=== PATIENT | female | born 1940 | race Caucasian/White ===

== ENCOUNTER 2016-10-22 16:45 | Inpatient (IN) | payer MEDICARE, MEDICAID ==
[~2016-10-22] VITALS: Ht 167.6 cm; Wt 82.1 kg
[2016-10-22 16:47] VITALS: BP 139/60; PULSE 72; RESP 20; O2SAT 95
[2016-10-22 17:43] LABS: BASOPHILS % (AUTO) 0.1 % (0-3); EOSINOPHILS % (AUTO) 0 % (0-5); MONOCYTES % (AUTO) 7.7 % (4-12); Mean Corpuscular Hemoglobin 25.1 pg (27.0-35.0); Mean Corpuscular Volume 79.5 fL (81-100); NEUTROPHILS % (AUTO) 87.8 % (40-74); Platelet Count 178 bil/L (150-400)
--- NOTE | 2016-10-22 18:12 | ED.REPORT ---
HPI-General Illness Date of Service Oct 22, 2016 ED Provider: Lindsey Foley MD 75 year old demented female with a history of diabetes presents to the ER via EMS from [facility] due to wound check for coccygeal pressure ulcer. Wound has been present for the past year, but worsened markedly today. Daughter reports that the wound has developed a foul smell since being placed on a wound vac. Patient was taken off of hospice treatment a week ago and showed signs of improvement with honey packing of the wound. This treatment was ceased recently due to development of infection. Staff at [facility] have attempted to get in touch with patient's primary care provider without success, which is the reason for her ER visit today. Daughter is unable to confirm or deny recent fever. Patient is DNAR. History is limited due to patient's underlying dementia. Nursing Notes Stated Complaint: WOUND CHECK POSS SEPSIS Chief Complaint: General Complaint Nursing Notes Reviewed: Yes Allergies: Coded Allergies: buprenorphine (Verified Allergy, Mild, Nausea, 10/22/16) metoclopramide (Verified Allergy, Mild, Restlessness, 10/22/16) Sulfa (Sulfonamide Antibiotics) (Verified Allergy, Unknown, 10/22/16) citalopram (Verified Allergy, Unknown, 10/22/16) doxycycline (Verified Allergy, Unknown, 10/22/16) fenofibrate (Verified Allergy, Unknown, 10/22/16) levofloxacin (Verified Allergy, Unknown, 10/22/16) morphine (Verified Allergy, Unknown, 10/22/16) niacin (Verified Allergy, Unknown, 10/22/16) risperidone (Verified Allergy, Unknown, 10/22/16) rosiglitazone (Verified Allergy, Unknown, 10/22/16) sulfamethoxazole (Verified Allergy, Unknown, 10/22/16) Scheduled Aspirin (Aspirin) 81 Mg Tablet 81 MG PO QAM Mirtazapine (Mirtazapine) 15 Mg Tablet 7.5 MG PO HS Quetiapine Fumarate (Quetiapine Fumarate) 25 Mg Tablet 25 MG PO QAM Scheduled PRN Acetaminophen (Acetaminophen) 325 Mg Tablet 650 MG PO Q4H PRN PRN For Fever Lorazepam (Lorazepam) 0.5 Mg Tablet 0.5-2 MG PO Q2H PRN PRN For Anxiety General Time Seen by MD: 18:11 Chief Complaint Other (Pressure Ulcer) Hx Obtained From: Daughter Arrived By: Ambulance Sudden in Onset?: No Onset Occurred: More than a week ago... (1 year) Context Related History: Reports Diabetes mellitus Recent Healthcare: Recent doctor visit Similar Sx Previous: Yes Past Medical History Past Medical History Parkinson's Disease Reports: Diabetes mellitus (type 2) Smoking History Former Smoker Social History Other Social History: Good social support Review of Systems Unable to Obtain ROS Mental status Physical Exam Vital Signs Vital Signs Date Time Temp Pulse Resp B/P Pulse Ox O2 Delivery O2 Flow Rate FiO2 10/22/16 16:47 36.6 72 20 139/60 95 Nasal Cannula 2 Initial VS: Reviewed Head / Eyes: Atraumatic, Normocephalic Neck: Supple, Non-tender, Full range of motion Abdomen / GI: Soft, Non-tender, No guarding, No rebound, No distention General/Constitutional: Well developed, Well nourished Alertness: Positive: Somnolent Appearance / Presentation: Positive: Obese Respiratory / Chest: Breath sounds NL, No respiratory distress, No rales, No rhonchi, No wheezing Cardiovascular: Heart rate NL, Regular rhythm, Heart sounds NL, Cap refill not delayed, Peripheral circulation NL Lower Extremity / Pelvis / MS: Neurologic intact, Vascular intact Left Thigh: Positive: Erythema present Left Leg / Calf: Positive: Erythema present 8cm diameter coccygeal decubitus ulcer with wound vac in place. Well-defined erythema down left leg. No crepitus. Sparing of the erythema on the anterior thigh to the groin. Interpretation & Diagnostics PROCEDURE: CT LOWER EXTREMITY LEFT WITH CONTRAST IMPRESSION: 1. Sacral decubitus ulcer redemonstrated extending to the inferior aspect of the sacrum and coccyx with associated osteomyelitis centered at the sacrococcygeal junction. No discrete abscess collection identified. 2. No definite ulcer demonstrated elsewhere in the left lower extremity. Subcutaneous edema demonstrated distally posterior to the calcaneus without a definite discrete ulcer. 3. Marked stool distention of the rectum suggestive of fecal impaction. Dictated by: Geovanni Lynne M.D. on 10/22/2016 at 20:02 Approved by: Geovanni Lynne M.D. on 10/22/2016 at 20:10 Lab Results Interpretation Result Diagram: 10/22/16 1721 10/22/16 1721 Test 10/22/16 17:21 White Blood Count 15.2th/mm3 (3.8-10.1) Red Blood Count 3.46mil/mm3 (3.90-5.20) Hemoglobin 8.7g/dL (12.0-15.6) Hematocrit 27.5% (35.0-46.0) Mean Corpuscular Volume 79.5fL (81-100) Mean Corpuscular Hemoglobin 25.1pg (27.0-35.0) Mean Corpuscular Hemoglobin Concent 31.6% (32.0-37.0) Red Cell Distribution Width 15.8% (12.3-15.4) Platelet Count 178bil/L (150-400) Neutrophils (%) (Auto) 87.8% (40-74) Lymphocytes (%) (Auto) 4.1% (14-46) Monocytes (%) (Auto) 7.7% (4-12) Eosinophils (%) (Auto) 0% (0-5) Basophils (%) (Auto) 0.1% (0-3) Prothrombin Time 12.2sec (8.1-12.5) Prothromb Time International Ratio 1.14ratio Activated Partial Thromboplast Time 30.1sec (22.8-33.0) Sodium Level 134mEq/L (134-144) Potassium Level 3.2mEq/L (3.5-5.2) Chloride Level 95mEq/L (97-108) Carbon Dioxide Level 22mmol/L (18-29) Blood Urea Nitrogen 35mg/dL (8-27) Creatinine 0.78mg/dL (0.57-1.00) Estimat Glomerular Filtration Rate 103mL/min (>59) Glucose Level 163mg/dL (60-99) Lactic Acid Level 0.7mmol/L (0.4-2.0) Calcium Level 9.4mg/dL (8.5-10.1) Phosphorus Level 3.6mg/dL (2.5-4.9) Magnesium Level 1.8mg/dL (1.6-2.6) Total Bilirubin 0.4mg/dL (0.0-1.2) Aspartate Amino Transf (AST/SGOT) 10U/L (0-50) Alanine Aminotransferase (ALT/SGPT) 5U/L (0-32) Alkaline Phosphatase 220U/L (25-165) Troponin T 0.057ug/L (0.0-0.011) Total Protein 6.9g/dL (6.4-8.4) Albumin 3.0g/dL (3.4-5.0) Procalcitonin 4.72ng/mL (0.00-0.08) ECG Interpretation ECG Interpretation: Sinus rhythm, rate [address] elevations T wave inversion in aVR Q wave in lead 3 Unchanged Time: 20:00 Interpreted by: ED physician Re-Eval/Medical Decision Med Decision/Clinical Course 75-year-old female with extensive past medical history including sacral decubitus ulcer who was recently taken off of hospice for decubitus ulcer brought in by her daughters for worsening smell. Differential diagnosis includes but is not limited to sepsis versus worsening sacral decub versus osteomyelitis versus cellulitis. Labs are remarkable for leukocytosis and anemia. Her stool is brown, and I do not feel she requires a Hemoccult exam at this time. CMP shows mild hypokalemia. Her lactic acid is normal. She has been given vancomycin, Zosyn, Levaquin for broad-spectrum antibiotics. She was also given fluids. Her troponin came back elevated, which I think is likely secondary to septic process, and not acute TN. Her EKG was unremarkable. Her daughters are wondering if she should go back on hospice. Patient has been admitted to the hospitalist, who is aware of possible transfer to hospice. Source of Hx: Old records Time of Eval: 18:43 Re-Evaluation/Progress Note: Discussed physical examination and need for admission. Daughter is amenable to the plan. All other questions addressed. Time of Eval: 20:50 Re-Evaluation/Progress Note: Discussed CT results and updated family on plan of care. Consultation : Referral / Consult Name: Danis Lynn MD Consulted With: Hospitalist Call Returned at: 20:46 Claims Adjuster Supervisor: Agrees with eval, Agrees with plan, Accepts admit Counseled Regarding: Diagnosis, Lab results, Need for admission Discharge & Departure Primary Impression: Sepsis Additional Impression: Decubitus ulcer of coccygeal region Disposition: ADMITTED TO HOSPITAL (3 ) Discharge Condition All VS Reviewed: Yes Condition: Stable Referrals: Neto Horton MD (PCP) Scribe Attestation Portions of this note were transcribed by Yolis Wilson. IDr. Foley, personally performed the history, physical exam and medical decision-making; I reviewed and confirmed the accuracy of the information in the transcribed note. Signed by: Marialuisa Arevalo. 10/22/2016 - 20:50 copies to: Neto Horton MD, Rebecca A MD Oct 22, 2016 18:12 YOLIS WILSON Oct 22, 2016 18:43
[2016-10-22] MEDS ORDERED: 0.9% Sodium Chloride 1,000 ML IV ONE ×2 (18:44→19:55)
[2016-10-22 18:45] VITALS: BP 124/52; PULSE 65; RESP 19; O2SAT 94
[2016-10-22] MEDS ORDERED: Piperacillin-Tazo 3.375 Gm Inj 3.375 GM in Dextrose 5% Minibag Plus 50 ML IV ONE (18:45)
[2016-10-22] MEDS ORDERED: Vancomycin Dose per Pharmacist XX ONE (18:45)
[2016-10-22 18:59] LABS: INR 1.14 ratio
[2016-10-22 19:06] LABS: Magnesium 1.8 mg/dL (1.6-2.6); Phosphorus 3.6 mg/dL (2.5-4.9)
[2016-10-22 19:27] LABS: TROPONIN T 0.057 ug/L (0.0-0.011)
[2016-10-22] MEDS ORDERED: Vancomycin Inj 1,750 MG in 0.9% Sodium Chloride 500 ML IV ONE (19:55)
[2016-10-22] MEDS ORDERED: Vancomycin Inj 1,500 MG in 0.9% Sodium Chloride 500 ML IV ONE (20:05)
--- NOTE | 2016-10-22 20:11 | DRSVH ---
PROCEDURE: CT LOWER EXTREMITY LEFT WITH CONTRAST INDICATIONS: sacral decub extending down whole leg TECHNIQUE: After the administration of intravenous contrast, 3 mm axial sections acquired of the left lower extr emity, with coronal and sagittal reformats. For radiation dose reduction, the following was used: a utomated exposure control, adjustment of mA and/or kV according to patient size. COMPARISON: [facility], MR, PELVIS W&WO CONTRAST, 08/15/2015, 11:29. FINDINGS: Image quality: History artifact associated with patient's left knee prosthesis. Bones: There are bony erosive changes at the sacrococcygeal junction consistent with osteomyelitis as demonstrated on the prior MRI. No definite new areas of osteomyelitis demonstrated elsewhere. No d efinite acute fractures or dislocation. There is a left total knee prosthesis with associated streak artifact. No hip or knee joint effusions. Soft tissues: There is a midline decubitus ulcer along the inferior aspect of the sacrum and coccyx m easuring up to approximately 5.8 cm in transverse dimension by approximately 6.7 cm in craniocaudal d imension and approximately 1.9 cm in depth. The ulcer extends to the sacrum and coccyx. No discrete fluid collections to suggest abscess. There is subcutaneous edema along the posterior aspect of the calcaneus without a discrete decubitus ulcer. There is fatty atrophy of the visualized musculature. The visualized pelvis demonstrates a Mclain catheter within a nondistended urinary bladder. There is marked stool distention of the rectum again noted. IMPRESSION: 1. Sacral decubitus ulcer redemonstrated extending to the inferior aspect of the sacrum and coccyx w ith associated osteomyelitis centered at the sacrococcygeal junction. No discrete abscess collection identified. 2. No definite ulcer demonstrated elsewhere in the left lower extremity. Subcutaneous edema demonst rated distally posterior to the calcaneus without a definite discrete ulcer. 3. Marked stool distention of the rectum suggestive of fecal impaction. Dictated by: Geovanni Lynne M.D. on 10/22/2016 at 20:02 Approved by: Geovanni Lynne M.D. on 10/22/2016 at 20:10
[2016-10-22 20:45] VITALS: BP 130/46; PULSE 67; RESP 16; O2SAT 100
[2016-10-22] MEDS ORDERED: Ondansetron 2 mg/mL 2 mL Inj IVPUSH PRN ×2 (20:45→22:30)
[2016-10-22] MEDS ORDERED: Alum-Mag Hydrox-Simeth 30 mL Suspension PO PRN ×2 (20:45→22:30)
[2016-10-22] MEDS ORDERED: LORA0.5T PO (21:10)
[2016-10-22] MEDS ORDERED: ASPI-973 PO (21:10)
[2016-10-22] MEDS ORDERED: QUET25TA73 PO (21:10)
[2016-10-22] MEDS ORDERED: ACET325T51 PO (21:10)
[2016-10-22] MEDS ORDERED: MIRT15TA6 PO (21:10)
[2016-10-22] MEDS ORDERED: LORA10CA PO (21:22)
[2016-10-22] MEDS ORDERED: NYST15PO5 TP (21:22)
[2016-10-22] MEDS ORDERED: TRAZ-115 PO (21:22)
[2016-10-22] MEDS ORDERED: DOCU-41 PO (21:22)
[2016-10-22] MEDS ORDERED: CARB1TAB17 PO (21:22)
[2016-10-22] MEDS ORDERED: HYDR1LIQ4 PO (21:22)
[2016-10-22] MEDS ORDERED: HYOS0.1216 PO (21:22)
[2016-10-22] MEDS ORDERED: METH5TAB3 PO (21:22)
[2016-10-22] MEDS ORDERED: BISA10SU61 RC (21:22)
[2016-10-22] MEDS ORDERED: LATA2.5D6 BOTH_EYES (21:22)
[2016-10-22] MEDS ORDERED: LEVO175T5 PO (21:22)
[2016-10-22] MEDS ORDERED: METF1000 PO (21:22)
--- NOTE | 2016-10-22 21:22 | NUR ---
Admit nurse note Admission assessment completed in the ER based on family report. PT. opens her eyes and c/o burning pain in pressure ulcer and then falls asleep again. Pt. is currently on sand bed. Per family pt. 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 PT. lives at [facility]. POLSt and DPMARCIA originals are on the chart. Savannah Perez is named as DPOA. Per family pt. currently has a UTI (she has an indwelling catheter and has frequent UTI's.) Per family pt is bed and w/c bound and uses a martinez lift to transfer. She requires some assistance with eating but is usually able to independently eat a sandwich. Per family pt has sleep apnea but has not had treatment for it. Report given to Loida Dozier who states she will verify allergies, follow up regarding advance directive copies and sleep apnea protocol.
[2016-10-22] MEDS ORDERED: OMEP20CA11 PO (21:23)
[2016-10-22] MEDS ORDERED: PRAM1TAB3 PO (21:23)
[2016-10-22] MEDS ORDERED: CARB-132 PO (21:26)
--- NOTE | 2016-10-22 21:26 | PCM.HPMED ---
Subjective Date of Service Oct 22, 2016 Primary Provider: Admitting Physician: Danis Lynn MD Primary Care Physician: Neto Horton MD Attending Physician: Danis Lynn MD Admit Status: From the Emergency Department Chief Complaint: decubitus ulcer with cellulitis, confusion, prior hospice History of Present Illness: Is a pleasant 75 y/o bed ridden F with hx of dementia and worsening delirium over the past year, hx of DM2, and 2 year hx sacral decubitus ulcer, who presented to the ED [facility] patient resides due to left lower extremity redness, and swelling over the past 48 hours. Patient describes burning pain on the buttock area rated 8 out of 10. Of note patient had wound VAC therapy for the last 3 weeks. Patient has been followed in wound care clinic once a week, otherwise was having her shoulder ulcer evaluated at [facility]. The wound seemed to be worsening over the past 48 hours and an evolving cellulitis of the left lower extremity prompted patient's visit to the ED. Patient's daughter Ebonie was present in the room at time of interview and reported that the wound had developed a foul smell since being placed on a wound vac. Of note patient was recently taken off of hospice treatment a week ago and showed signs of improvement with honey packing of the wound. This treatment was ceased recently due to development of infection. Prior to transfer to [facility] patient was residing at [facility] for. 3 months for possible surgical flap repair of the deep decubitus ulcer however was liter determined not to be a candidate for surgery given level of debility. Daughter is unable to confirm or deny associated fever. Denies nausea, vomiting , abdominal pain, dysuria, hematuria, cough, shortness of breath. Patient is DNR /DNI. History is limited due to patient's underlying dementia. CT left lower extremity showed: 1. Sacral decubitus ulcer redemonstrated extending to the inferior aspect of the sacrum and coccyx with associated osteomyelitis centered at the sacrococcygeal junction. No discrete abscess collection identified. 2. No definite ulcer demonstrated elsewhere in the left lower extremity. Subcutaneous edema demonstrated distally posterior to the calcaneus without a definite discrete ulcer. 3. Marked stool distention of the rectum suggestive of fecal impaction. Vital signs ED: Temperature 36.6, pulse 72, respiratory rate 20, blood pressure 139/60, 96, pulse ox 95% on 2 L nasal cannula. Patient received 1 L normal saline bolus in the ED. Patient was started on vancomycin 1500 mg once in the ED. Patient was started on Zosyn 3.375 g once in the ED. Hemogram significant for: PVCs 15.2, percent neutrophils 87.8, H/H8.7, 27.5, platelets 178, differential, MCV 79.5, MCH 25.1, MCH C 31.6, RDW 15.8. Chemistry panel: Sodium 134, potassium 3.2, chloride 95, carbon dioxide 22, BUN 35, creatinine 0.78, glucose 163, lactic acid 0.7, magnesium 1.8, alkaline phosphatase 220, troponin 0.057, pro calcitonin 4.72, albumin 3.0 PT INR, 12.2/1.14, APTT 30.1 Blood cultures 2 ordered and pending Review of Systems: A comprehensive review of systems was conducted and was negative except as mentioned in history of present illness. Allergies Coded Allergies: buprenorphine (Verified Allergy, Mild, Nausea, 10/22/16) metoclopramide (Verified Allergy, Mild, Restlessness, 10/22/16) Sulfa (Sulfonamide Antibiotics) (Verified Allergy, Unknown, 10/22/16) citalopram (Verified Allergy, Unknown, 10/22/16) doxycycline (Verified Allergy, Unknown, 10/22/16) fenofibrate (Verified Allergy, Unknown, 10/22/16) levofloxacin (Verified Allergy, Unknown, 10/22/16) morphine (Verified Allergy, Unknown, 10/22/16) niacin (Verified Allergy, Unknown, 10/22/16) risperidone (Verified Allergy, Unknown, 10/22/16) rosiglitazone (Verified Allergy, Unknown, 10/22/16) sulfamethoxazole (Verified Allergy, Unknown, 10/22/16) Home Medications Note the following medications have not been verified or reconciled. Acetaminophen 325 mg tablet takes 650 mg by mouth every 4 hours for pain Aspirin 81 mg tablet by mouth every morning Bisacodyl 10 mg suppository rectal 3 times per week when necessary Carbidopa levodopa 25- 250 mg 1 tablet by mouth 4 times a day Carbidopa/levodopa/Enta 50-200-200 mg 1 tablet by mouth at bedtime Docusate sodium 100 mg capsule takes 2 by mouth every morning Hydromorphone 1 mg per 1 mL liquid patient takes 1-4 mg by mouth every hour for pain when necessary Hyoscyamine 0.125 mg tablet, takes 0.25 mg by mouth every 4 hours when necessary Latanoprost 2.5 ml drops drop both eyes before bed Thyroxine 175 g by mouth every morning Loratadine 10 mg capsule every morning Lorazepam 0.5 mg tablet takes 0.5-2 mg every 2 hours when necessary for anxiety Metformin 1000 mg tablet by mouth daily with meals Methadone 5 mg tablet 2.5 mg by mouth twice a day Metronidazole 375 mg capsule, sprinkle 1000 mg on to wound twice daily Mirtazapine 15 hemogram tablet 7.5 mg by mouth every night Nystatin 15 g powder, 1 application twice a day to abdominal folds for rash Omeprazole 20 mg capsule every morning Mirapex 1 mg. By mouth twice a day Quetiapine 25 mg tablet every morning for schizoaffective disorder Trazodone 50 mg tablet by mouth at bedtime PMH Parkinson's Disease Reports: Diabetes mellitus (type 2) Hyperlipidemia prior history of hypertension Patient/anxiety Dementia Worsening delirium over the past year Surgical History Ovarian cancer 30 years ago Left knee surgery 20 years ago back surgeries 2 lumbar area with surgical sridhar placement 10 years ago Hernia repair of the abdomen Bowel obstruction Cholecystectomy Family History Brother with coronary disease Sister with Parkinson's Social History Hx Tobacco Use: No Smoking Status: Former Smoker Exam Vital Signs Vital Sign - Last Date Time Temp Pulse Resp B/P Pulse Ox O2 Delivery O2 Flow Rate FiO2 10/22/16 16:47 36.6 72 20 139/60 95 Nasal Cannula 2 Exam General: Patient is somewhat obtunded but able to respond to simple questioning and follows simple commands, patient lying in bed with mild slightly gaping, able to open eyes to command, able to follow instructions, though minimally HEENT: NC/AT, eyes, PERRLA, neck soft supple, no adenopathy, no JVD, no masses, no thyromegaly, mucous membranes pink and dry, appears dehydrated, no erythema, no exudates Lungs: CTAB all tierney, no wheezes, no rhonchi, no crackles, no adventitious lung sounds, no use of accessory muscles of respiration, adequate air movement, though poor respiratory effort. Heart: Regular rate and rhythm, grade 1 systolic murmur Abdomen: Soft, nontender, nondistended, bowel sounds active, no rebound, no guarding, abdomen is obese Genitourinary: No CVA tenderness, no suprapubic tenderness, Mclain catheter draining lightly colored urine, Extremities: Left lower extremity appears somewhat diffusely erythematous, with mild swelling however did not detect increased warmth, erythema was small petechial rash that appears to be coalescing. Muscle strength, 5 out of 5 upper extremity and symmetric laterally, onychomycosis of the lower trimming nails, toe webs appear healthy, pulses equal and symmetric upper/lower extremity including radial and dorsalis pedis. Neurologic: neurologically intact, able to respond to certain commands although exam is difficult given patient's level of debility Skin: Severe 15 x 15 cm circumferential decubitus ulcer full-thickness, with 4 cm of undermining circumferentially. One was covered by foam pad that was stained with blood, skin of left lower extremity with diffuse erythema Psychiatric: somewhat obtunded Lab and Diagnostics Result Diagram: 10/22/16 1721 10/22/16 1721 X-Rays, CTs and MRIs Date of Service: 10/22/16 190 PROCEDURE: CT LOWER EXTREMITY LEFT WITH CONTRAST INDICATIONS: sacral decub extending down whole leg TECHNIQUE: After the administration of intravenous contrast, 3 mm axial sections acquired of the left lower extremity, with coronal and sagittal reformats. For radiation dose reduction, the following was used: automated exposure control, adjustment of mA and/or kV according to patient size. COMPARISON: [facility], MR, PELVIS W&WO CONTRAST, 08/15/2015, 11:29. FINDINGS: Image quality: History artifact associated with patient's left knee prosthesis. Bones: There are bony erosive changes at the sacrococcygeal junction consistent with osteomyelitis as demonstrated on the prior MRI. No definite new areas of osteomyelitis demonstrated elsewhere. No definite acute fractures or dislocation. There is a left total knee prosthesis with associated streak artifact. No hip or knee joint effusions. Soft tissues: There is a midline decubitus ulcer along the inferior aspect of the sacrum and coccyx measuring up to approximately 5.8 cm in transverse dimension by approximately 6.7 cm in craniocaudal dimension and approximately 1.9 cm in depth. The ulcer extends to the sacrum and coccyx. No discrete fluid collections to suggest abscess. There is subcutaneous edema along the posterior aspect of the calcaneus without a discrete decubitus ulcer. There is fatty atrophy of the visualized musculature. The visualized pelvis demonstrates a Mclain catheter within a nondistended urinary bladder. There is marked stool distention of the rectum again noted. IMPRESSION: 1. Sacral decubitus ulcer redemonstrated extending to the inferior aspect of the sacrum and coccyx with associated osteomyelitis centered at the sacrococcygeal junction. No discrete abscess collection identified. 2. No definite ulcer demonstrated elsewhere in the left lower extremity. Subcutaneous edema demonstrated distally posterior to the calcaneus without a definite discrete ulcer. 3. Marked stool distention of the rectum suggestive of fecal impaction. Dictated by: Geovanni Lynne M.D. on 10/22/2016 at 20:02 Approved by: Geovanni Lynne M.D. on 10/22/2016 at 20:10 Assessment & Plan This is a pleasant although demented 68-year-old female with past medical history of type II diabetes and two-year history of decubitus ulcer who presented to the ED with 2 days of left lower cellulitis secondary to decubitus ulcer. Patient was found to have osteomyelitis on CT and was admitted to the hospital for care. Of note patient just was taken off of hospice. Patient's daughter and patient will need to decide on further hospice care or not. # Cellulitis of left lower extremity secondary to a chronic sacral decubitus ulcer, present on admission, active - Patient was started on vancomycin 1500 mg once in the ED. we will continue - Patient was started on Zosyn 3.375 g once in the ED. we will continue - IV maintenance fluids normal saline at 100 mL an hour # Chronic sacral decubitus ulcer, present on admission, active - Patient failed honey packing secondary to #1 cellulitis - Two-year history of decubitus ulcer, status post failed wound VAC therapy over past 3 weeks. - Patient is seen once a week in the wound clinic - Temporary wound care instructions given for overnight - Wound care evaluation in the morning # Osteomyelitis, present remission, active - As seen on CT - Antibiotics as above - Consider infectious disease consult # Leukocytosis, present remission, active - Vital signs ED: Temperature 36.6, pulse 72, respiratory rate 20, blood pressure 139/60, 96, pulse ox 95% on 2 L nasal cannula. - White blood cell count > 15.2 percent neutrophils 87.8 - lactic acid 0.7, - Procalcitonin 4.72 - Antibiotics as stated above - Blood cultures 2 ordered and pending # Elevated troponin, present remission, active - Likely secondary to demand - troponin 0.057 - We will trend troponin # Dehydration, present on admission, active - Patient is at risk for aspiration - Patient received 1 L normal saline bolus in the ED. - Continue IV maintenance normal saline as above - Speech therapy, occupational therapy, physical therapy ordered pending for today - Nursing to do swallow evaluation - Current diet is liquid thick # Hypoalbuminemia, present on admission, - Secondary to poor nutrition, by mouth intake of protein and secondary to #1 decubitus ulcer # Hypokalemia, recent on admission, active - potassium 3.2, will replete potassium #Hyperglycemia present in a known type II diabetic, present on admission, active - glucose 163, - Low-dose correctional scale insulin - We will continue to monitor. # Hypochromic microcytic anemia, chronicity unknown, present on admission, active - H/H8.7, 27.5, platelets 178, differential, MCV 79.5, MCH 25.1, MCH C 31.6, RDW 15.8. - We will obtain iron studies - Ferritin # Sacral decubitus ulcer with associated osteomyelitis of the sacrococcyx, present on admission, active - As seen on CT left lower extremity: 1. Sacral decubitus ulcer redemonstrated extending to the inferior aspect of the sacrum and coccyx with associated osteomyelitis centered at the sacrococcygeal junction. No abscess. # Fecal impaction, present on admission, active As seen on CT left lower extremity: Marked stool distention of the rectum suggestive of fecal impaction. Chronic problems Parkinson's Disease - Continue outpatient medication carbidopa levodopa Reports: Diabetes mellitus (type 2) - Patient was on metformin 1000 mg daily however med rec is incomplete and needs to be reconciled. Hyperlipidemia prior history of hypertension - med rec is incomplete and needs to be reconciled. Patient/anxiety - med rec is incomplete and needs to be reconciled. Dementia - Possibly secondary to sinus disease Worsening delirium over the past year - I could secondary to bedridden, multiple comorbid medical conditions, polypharmacy Disposition: Admitted to in patient service with expected length of stay greater than 2 days, secondary to severity of presenting symptoms, treatment plan, complexity of clinical work up, and risk of adverse events. CODE STATUS: DNR/DNI PCP: DVT PE prophylaxis: Enoxaparin Contact: Daughter Ebonie [phone] Daughter Savannah [phone] Pain Evaluation: Pain not Controlled VTE Prophylaxis: Sub-Q Enoxaparin Resuscitation Status: DNR/DNI:Do Not Resuscitate/Intubate Attending Statement The patient was seen and examined together with Dr. Mcgowan on 10/22/2016and I agree with the history, exam and plan as outlined in the note above. Evin Mcgowan DO Oct 22, 2016 21:26 Danis Lynn MD Oct 23, 2016 03:56
[2016-10-22] MEDS ORDERED: METR375C4 TOPICAL (21:30)
[2016-10-22 21:52] VITALS: BP 142/69; PULSE 67; RESP 18; O2SAT 98
[2016-10-22] MEDS ORDERED: 0.9% Sodium Chloride 1,000 ML IV SCH (22:29)
[2016-10-22] MEDS ORDERED: Polyethylene Glycol (PEG) 17 Gm Powder PO PRN (22:30)
[2016-10-23] MEDS: oxyCODONE-Acetamin 5-325 mg Tablet PO PRN ×2 (00:03→04:10)
[2016-10-23] MEDS: HYDROmorphone 0.5 mg/0.5 mL iSecure Syringe IVPUSH PRN ×3 (01:55→13:58)
[2016-10-23] MEDS ORDERED: Piperacillin-Tazo 3.375 Gm Inj 3.375 GM in Dextrose 5% Minibag Plus 50 ML IV SCH (02:00)
[2016-10-23 04:37] LABS: APPEARANCE,URINE SLIGHTLY CLOUDY (CLEAR,HAZY); COLOR,URINE YELLOW (YELLOW); OCCULT BLOOD,URINE SMALL (NEGATIVE); PH,URINE >9 (5.0-8.0); UROBILINOGEN,URINE NORMAL (NORMAL)
--- NOTE | 2016-10-23 04:52 | NUR ---
Pain / ulcer Pt arrived from ED on sand bed, states pain is very bad. Large open ulcer on sacrum packed with wet to dry dressing per Md, wound care to assess in am; wound vac was removed in ED. Required IV pain med for dressing change. Mclain catheter in place from facility, ua sent. Very sleepy, able to wake and participate in RN safe swallow eval, family states that baseline is normal diet; speech to follow. Left leg with large reddened area, outlined with ink for reference. Placed on contact precautions for history of MRSA. Oriented to call light, hospital routines, plan of care; hourly rounding ongoing.
[2016-10-23 05:20] LABS: BASOPHILS % (AUTO) 0.1 % (0-3); EOSINOPHILS % (AUTO) 0.2 % (0-5); MONOCYTES % (AUTO) 9.1 % (4-12); Mean Corpuscular Hemoglobin 24.5 pg (27.0-35.0); Mean Corpuscular Volume 80.5 fL (81-100); NEUTROPHILS % (AUTO) 84.6 % (40-74); Platelet Count 154 bil/L (150-400)
[2016-10-23] MEDS ORDERED: KCl 40 mEq/D5W 500 mL 40 MEQ in IV Premix 1 EACH IV ONE ×2 (05:50→06:25)
[2016-10-23 05:54] VITALS: BP 152/84; PULSE 61; RESP 16; O2SAT 99
--- NOTE | 2016-10-23 06:20 | PCM.CONPHA ---
Subjective Date of Service: Oct 23, 2016 Requesting Provider: Evin Mcgowan DO decubitus ulcer with cellulitis, confusion, prior hospice Reason for Pharmacy Consult: Vancomycin Dosing Objective Vital Signs Date Time Temp Pulse Resp B/P Pulse Ox O2 Delivery O2 Flow Rate FiO2 10/23/16 05:54 36.9 61 16 152/84 99 Nasal Cannula 10/22/16 21:52 36.7 67 18 142/69 98 Room Air 10/22/16 21:35 36.6 67 16 130/46 100 Room Air 10/22/16 20:45 67 16 130/46 100 Room Air 10/22/16 18:45 65 19 124/52 94 Room Air 10/22/16 16:47 36.6 72 20 139/60 95 Nasal Cannula 2 Intake and Output 10/21/16 10/22/16 10/23/16 00:00 00:00 00:00 Intake Total 1000 ml Balance 1000 ml Height (Feet): 5 Height (Inches): 6.00 Test 10/22/16 17:21 10/22/16 17:31 10/22/16 23:45 10/23/16 04:10 Prothrombin Time 12.2sec (8.1-12.5) Prothromb Time International Ratio 1.14ratio Activated Partial Thromboplast Time 30.1sec (22.8-33.0) Lactic Acid Level 0.7mmol/L (0.4-2.0) Phosphorus Level 3.6mg/dL (2.5-4.9) Magnesium Level 1.8mg/dL (1.6-2.6) Procalcitonin 4.72ng/mL (0.00-0.08) Troponin T 0.042ug/L (0.0-0.011) Urine Color Yellow (YELLOW) Urine Appearance Slightly cloudy Urine pH >9 (5.0-8.0) Urine Specific [place] 1.005 (1.003-1.035) Urine Protein 30mg/dL (NEG,TRACE) Urine Glucose (UA) Negativemg/dL (NEGATIVE) Urine Ketones Negativemg/dL (NEGATIVE) Urine Occult Blood Small (NEGATIVE) Urine Nitrite Positive (NEGATIVE) Urine Bilirubin Negative (NEGATIVE) Urine Urobilinogen Normalmg/dL (NORMAL) Urine Leukocyte Esterase Moderate (NEGATIVE) Urine RBC 3-10/hpf (0-2) Urine WBC 6-10/hpf (0-5) Urine Epithelial Cells Occasional/hpf (NONE-MOD) Urine Crystals Triple phosphate Urine Bacteria Moderate/hpf (NONE-FEW) Urine Hyaline Casts None/lpf (NONE) Urine Granular Casts None seen (NONE SEEN) Urine Waxy Casts None seen (NONE SEEN) Urine Red Blood Cell Casts None seen (NONE SEEN) Urine White Blood Cell Casts None seen (NONE SEEN) Urine Mucus None seen (None Seen) Urine Trichomonas None seen (NONE SEEN) Urine Yeast None (NONE SEEN) Urinalysis Comment None Urine Culture Reflexed Indicated Test 10/23/16 04:55 White Blood Count 13.0th/mm3 (3.8-10.1) Red Blood Count 3.18mil/mm3 (3.90-5.20) Hemoglobin 7.8g/dL (12.0-15.6) Hematocrit 25.6% (35.0-46.0) Mean Corpuscular Volume 80.5fL (81-100) Mean Corpuscular Hemoglobin 24.5pg (27.0-35.0) Mean Corpuscular Hemoglobin Concent 30.5% (32.0-37.0) Red Cell Distribution Width 15.8% (12.3-15.4) Platelet Count 154bil/L (150-400) Neutrophils (%) (Auto) 84.6% (40-74) Lymphocytes (%) (Auto) 5.8% (14-46) Monocytes (%) (Auto) 9.1% (4-12) Eosinophils (%) (Auto) 0.2% (0-5) Basophils (%) (Auto) 0.1% (0-3) Sodium Level 138mEq/L (134-144) Potassium Level 2.9mEq/L (3.5-5.2) Chloride Level 99mEq/L (97-108) Carbon Dioxide Level 22mmol/L (18-29) Blood Urea Nitrogen 32mg/dL (8-27) Creatinine 0.75mg/dL (0.57-1.00) Estimat Glomerular Filtration Rate 107mL/min (>59) Glucose Level 136mg/dL (60-99) Calcium Level 8.3mg/dL (8.5-10.1) Total Bilirubin 0.2mg/dL (0.0-1.2) Aspartate Amino Transf (AST/SGOT) 12U/L (0-50) Alanine Aminotransferase (ALT/SGPT) 9U/L (0-32) Alkaline Phosphatase 190U/L (25-165) Total Protein 5.6g/dL (6.4-8.4) Albumin 2.8g/dL (3.4-5.0) Assessment/Plan Assessment/Plan A: * Vancomycin dosing by pharmacy for 75 y/o woman with cellulitis and osteomyelitis * The patient received a vancomycin loading dose of 1500 mg IV in the ED * She is also being started on Zosyn * We do not have an accurate weight, but the family estimates that she is about 180 pounds (~82 kg) * Estimated CrCl is 65 mL/min (Cockcroft & Gault using AdjBW) * Estimated vancomycin half-life is 12 hours and estimated Vd is 57 liters P: * Starting vancomycin 1000 mg IV every 12 hours * Target a vancomycin trough range of 15 - 20 mcg/mL * Drawing a trough level prior to the fourth dose * Pharmacy to follow-up on patient's actual weight and adjust dosing if appropriate Thank you. Pharmacy will continue to follow this patient. Merly Weiss, PharmD Merly Weiss Oct 23, 2016 06:20
[2016-10-23] MEDS: 0.9% NaCl + KCl 20 mEq/L 1,000 ML IV SCH ×3 (06:49→23:30)
[2016-10-23 06:55] VITALS: PULSE 60
[2016-10-23 08:13] VITALS: PULSE 63
[2016-10-23] MEDS ORDERED: Glucose 40% Oral Gel 15 Gm Tube PO PRN (08:25)
[2016-10-23] MEDS ORDERED: 0.9% Sodium Chloride 250 ML ONE (09:56)
--- NOTE | 2016-10-23 10:14 | NUR ---
[employer] consult received. Due to severity of decubitus ulcer, pt is not able to position upright without considerable pain and in addition, positioning is poor in a clinitron bed. Given the nutritional intake required to attempt to heal, pt's pain level, Parkinson's disease hx, and dementia, a PEG tube is the most appropriate option for this pt. The decision is deferred to the medical team, given that the family is requesting hospice at this time. Discussed with wound care, RN, and .
--- NOTE | 2016-10-23 10:17 | NUR ---
Palliative Care FISH ICER Case Coordination Note10/23/1709:10AM This parts data writer left message for [facility] regarding whether pt. has recently been on Hospice services. Pt. is 75 year old woman who was admitted to [facility] on 10/22/16 for treatment of cellulitis and sacral decubitus ulcer. Awaiting call back from [facility] to review pt.'s current hospitalization and possible referral back for Hospice services if clinically appropriate and aligned with pt./family goals for care. USMAN Douglas, [facility] Palliative Care Services
--- NOTE | 2016-10-23 10:19 | NUR ---
Wound Care Wound evaluation received, pt seen at bedside for assessment of sacral decubitus ulcer. 75 yo bedbound/chairfast demented female resident of [facility] admitted to [facility] for cellulitis left leg. This ulcer is impressive measuring 6 cm L x 9 cm W x 2 cm D with undermining of 3.5 cms from 9:00 to 3:00 superiorly. There is an area of impending skin breakdown as evidenced by blistered and non blanchable purple tissue at the left border of the open stage 4 sacral pressure ulcer (POA) that measures 9 cm L x 6 cm W. Wound was cleaned and cultured today as requested by MD. Wound then redressed with moistened aquacell AG packing covered with 4 x 4 gauze and abds (2) taped in place. Nursing to change dressings q 48 hours. Prospects for healing this wound given patients medical condition is guarded at best. Patient on appropriate bed. Wound care to follow up on Wednesday.
[2016-10-23] MEDS: Vancomycin Inj 1,000 MG in IV Premix 1 EACH IV SCH ×2 (10:27→20:42)
[2016-10-23 11:12] VITALS: BP 151/66; PULSE 63; RESP 18; O2SAT 99
[2016-10-23] MEDS ORDERED: HYDROmorphone 0.5 mg/0.5 mL iSecure Syringe IVPUSH PRN (11:30)
--- NOTE | 2016-10-23 11:30 | PCM.CONPAL ---
Date of Service Oct 23, 2016 Date of Hospital Admission: Oct 22, 2016 at 21:08 Date of Palliative Consult: Oct 23, 2016 Requesting Provider: Osmin Redmond MD Reason Palliative Care Consult: Pain, Goals of Care Discussion Hospital Unit @time of consult: Orthopedic/Surgical Care Palliative Care Recommendation 75-year-old female with history of Parkinson's disease, dementia, long-standing sacral decubitus ulcer, now with fairly rapid deterioration of the state of the ulcer over the last several weeks, admitted with evidence of cellulitis and sepsis. Palliative medicine consulted to assist patient and family in determination of goals of care. Note that the patient had been under hospice care from 07/03 through 09/04, but graduated from hospice at that point due to improvement. Lengthy conversations today with the patient and multiple family members- the family has a realistic understanding of her status and prognosis, but want to have some time to think before proceeding to purely comfort/end-of-life care. Summary of palliative recommendations: -Symptom management (Pain/other)- restart her usual methadone, 2.5 mg BID. Restart her usual hydromorphone liquid, with backup IV hydromorphone for breakthrough pain, as well as lorazepam for anxiety. Restart her Mirapex and Remeron. Adjust medications as needed in the coming days. Family would like her to be awake and interactive if possible, but note that her comfort is the primary goal. Family also wants her to have unrestricted oral intake with no food/liquid limitations on the basis of swallow. Diet therefore liberalized. Family understands and accepts the risk of aspiration. She is NOT a candidate for CCU care if she aspirates, and if that occurred would transition to more of a purely comfort care status. -DPOA/Advanced Directives/POLST- she remains DO NOT RESUSCITATE/DO NOT INTUBATE/ limited interventions including current IV fluids, antibiotics, etc. for now. Not a candidate for CCU care, pressors, etc. Family is going to consider possible transition to hospice/comfort care over the next several days. I notified [facility] of the family's position- they noted that they were ready and willing to assist again if/when the family wishes. Additional Medical Diagnoses with primary management by Hospitalist team include : # Cellulitis of left lower extremity secondary to a chronic sacral decubitus ulcer, present on admission, active # Chronic sacral decubitus ulcer, present on admission, active # Osteomyelitis, present remission, active # Leukocytosis, present remission, active # Elevated troponin, present remission, active # Dehydration, present on admission, active # Hypoalbuminemia, present on admission, # Hypokalemia, recent on admission, active #Hyperglycemia present in a known type II diabetic, present on admission, active # Hypochromic microcytic anemia, chronicity unknown, present on admission, active # Sacral decubitus ulcer with associated osteomyelitis of the sacrococcyx, present on admission, active # Fecal impaction, present on admission, active Chronic problems: Parkinson's Disease Reports: Diabetes mellitus (type 2) Hyperlipidemia Hypertension Patient/anxiety Dementia Worsening delirium over the past year Problems: End of Life Preferences DO NOT RESUSCITATE/DO NOT INTUBATE/limited interventions Goals of Care Comfort his primary goal, but family wants to continue antibiotics, etc. for now in hopes of stabilization Disposition To be determined The family expressed some concerns/reservations about her SNF care, but understand that options may be limited Resuscitation Status Resuscitation Status: DNR/DNI:Do Not Resuscitate/Intubate . Pain: Moderate Symptom management: Pain Pt History History of Present Illness Per admission H&P: 75 y/o bed ridden F with hx of dementia and worsening delirium over the past year, hx of DM2, and 2 year hx sacral decubitus ulcer, who presented to the ED [facility] patient resides due to left lower extremity redness, and swelling over the past 48 hours. Patient describes burning pain on the buttock area rated 8 out of 10. Of note patient had wound VAC therapy for the last 3 weeks. Patient has been followed in wound care clinic once a week, otherwise was having her shoulder ulcer evaluated at [facility]. The wound seemed to be worsening over the past 48 hours and an evolving cellulitis of the left lower extremity prompted patient's visit to the ED. Patient's daughter Ebonie was present in the room at time of interview and reported that the wound had developed a foul smell since being placed on a wound vac. Of note patient was recently taken off of hospice treatment a week ago and showed signs of improvement with honey packing of the wound. This treatment was ceased recently due to development of infection. Prior to transfer to [facility] patient was residing at [facility] for. 3 months for possible surgical flap repair of the deep decubitus ulcer however was liter determined not to be a candidate for surgery given level of debility. Daughter is unable to confirm or deny associated fever. Denies nausea, vomiting, abdominal pain, dysuria, hematuria, cough, shortness of breath. Patient is DNR/DNI. History is limited due to patient's underlying dementia. Comparison of notes regarding the appearance of her sacral decubitus suggests that it has deteriorated markedly over the course of the last several weeks. Patient previously had been followed since 07/03 by hospice at [facility], but hospice signed off at the end of 09/04 as it appeared patient was improving. Palliative medicine was consulted to assist patient and family in determination of goals of care. Prior to visiting patient, I reviewed her records in the EMR in detail. Also spoke with hospice personnel regarding her history there. On my arrival, patient is lying in a [place] bed. Wound care had recently been by to evaluate her. Speech therapy also saw her and does not feel she is safe for oral intake. Patient was awake and alert and complained of significant pain in the region of her tailbone and in her left leg. Requested additional pain medication. She denied any other significant discomfort such as chest or abdominal pain, nausea, dyspnea, etc. She is able to answer very simple focused questions and follow simple commands but has significant short- term memory deficit. I then called and spoke with her daughter Ebonie by phone. Reviewed patient's current status, per her progress over the last several months, and her prognosis. Ebonie noted that she and her sister Savannah as well as the patient's sister would be visiting the hospital shortly and she requested that I join them at that time, to which I agreed. Returned later to meet with multiple family members at bedside. They initially wanted to involve the patient in all decision-making, but after speaking for several minutes and recognizing that she really was unable to process and interact with these complex questions, the family became more willing to speak and make decisions on her behalf. We reviewed her past medical history, particularly the history of the decubitus ulcer and all that she has been through as it has been treated. The family members recognize that there is no cure for this but initially had limited understanding of her overall time course /prognosis. I advised them that my expectation is that even if she stabilizes this time she will experience early and frequent readmissions for recurrent bouts of sepsis, and that there was little if any likelihood that she would significantly improve or have long-term stabilization. We then talked at length about implications of that realization. Reviewed their goals for her care (all family members agreed that her comfort was their primary goal). They recognize the potential need to transition back to hospice care/comfort care but wanted to take some time and think and talk about things over the next several days. Answered multiple questions they had about her status, prognosis, medications, diet aspiration risk, etc. and I stayed and we talked until all questions had been answered to their satisfaction. Past Medical History Significant PMH Noted: Parkinson's Disease Diabetes mellitus (type 2) Hyperlipidemia History of hypertension Anxiety Dementia Surgical History Ovarian cancer 30 years ago Left knee surgery 20 years ago back surgeries 2 lumbar area with surgical sridhar placement 10 years ago Hernia repair of the abdomen Bowel obstruction Cholecystectomy Social History Occupation: Retired/disabled; Family Members Issues: Family members are realistic about patient's status and prognosis. Social Support: Excellent support from her daughters and other family members Living Situation: [facility] Palliative Performance Scale PPS Patient Status: Baseline PPS Ambulation: Mainly Bed PPS Activity: Unable to do any activity PPS Self-Care: Total Care PPS Intake: Normal or reduced PPS Conscious Level: Full or confusion Performance Scale: 30% ADLs ADL Patient Status: Baseline ADL Ambulation: Mainly Bed ADL Dressing: Total care ADL Feeding: Total care ADL Hygene/bathing: Total care ADL Transfers: Total care Allergy Allergies Reviewed: Yes Medications Current Medications: Current Medications Al Hydrox/Mg Hydrox/Simethicone 30 ml Q6 PRN PO; Start 10/22/16 at 20:45; Stop 10/22/16 at 22:47; Status DC Ondansetron HCl Dose range: 4 mg to 8 mg Q4H PRN IVPUSH; Start 10/22/16 at 20:45 ; Stop 10/22/16 at 23:04; Status DC Acetaminophen 975 mg Q6H PRN PO; Start 10/22/16 at 20:45; Stop 10/22/16 at 23:04 ; Status DC Enoxaparin Sodium 40 mg 40 mg DAILY SUBQ Last administered on 10/23/16t 10:29; Admin Dose 40 MG; Start 10/23/16 at 08:30 Sodium Chloride 1,000 ml @ 100 mls/hr Q10H IV Last administered on 10/23/16 00: 02; Admin Dose 100 MLS/HR; Start 10/22/16 at 22:29; Stop 10/23/16 at 06:25; Status DC Al Hydrox/Mg Hydrox/Simethicone 30 ml Q6H PRN PO; Start 10/22/16 at 22:30 Ondansetron HCl 4 to 8 mg Q4H PRN IVPUSH; Start 10/22/16 at 22:30 Senna 17.2 mg BID PRN PO; Start 10/22/16 at 22:30 Polyethylene Glycol 17 gm DAILY PRN PO; Start 10/22/16 at 22:30 Acetaminophen 650 mg Q4H PRN PO Last administered on 10/23/16 00:04; Admin Dose 650 MG; Start 10/22/16 at 22:30; Stop 10/23/16 at 08:29; Status DC Pharmacy Consult 1 ea 1 ea DAILY XX; Start 10/23/16 at 08:30 Piperacillin Sod/ Tazobactam Sod/ Dextrose/Water 50 ml @ 12.5 mls/hr Q8 IV Last administered on 10/23/16 01:55; Admin Dose 12.5 MLS/HR; Start 10/23/16 at 02 :00; Stop 10/23/16 at 08:44; Status DC Oxycodone/ Acetaminophen 1 tab Q4H PRN PO Last administered on 10/23/16 04:10; Admin Dose 1 TAB; Start 10/22/16 at 23:05 Hydromorphone HCl 0.25-0.5 MG Q4H PRN IVPUSH Last administered on 10/23/16 02: 11; Admin Dose 0.25 MG; Start 10/23/16 at 01:45; Stop 10/23/16 at 10:58; Status DC Vancomycin/0.9 % Sod Chloride 1000 mg/Premix 200 ml @ 133.333 mls/hr Q12 IV Last administered on 10/23/16 10:27; Admin Dose 133.333 MLS/HR; Start 10/23/16 at 08:30 Potassium Chloride/Sodium Chloride 1,000 ml @ 125 mls/hr Q8H IV Last administered on 10/23/16 06:49; Admin Dose 125 MLS/HR; Start 10/23/16 at 06:25 Insulin Human Lispro Nutritional Dose to be given pr... [facility] SUBQ; Start at 12:00 Acetaminophen 650 mg 650 mg Q4H PO Last administered on 10/23/16t 10:30; Admin Dose 650 MG; Start 10/23/16 at 10:30 Piperacillin Sod/ Tazobactam Sod/ Dextrose/Water 50 ml @ 12.5 mls/hr Q8H IV; Start 10/23/16 at 10:00 Hydromorphone HCl 0.5 mg Q3 PRN IVPUSH; Start 10/23/16 at 11:30 Scheduled Aspirin (Aspirin) 81 Mg Tablet 81 MG PO QAM Carbidopa/Levodopa 25-250 mg (Carbidopa/Levodopa 25-250 mg) 1 Each Tablet 1 TABLET PO QID Carbidopa/Levodopa/Enta 50-200-200 mg (Carbidopa/Levodopa/Enta 50-200-200 mg) 1 Each Tablet 1 TABLET PO HS Docusate Sodium (Colace) 100 Mg Capsule 200 MG PO QAM Latanoprost (Latanoprost) 2.5 Ml Drops 1 GTT BOTH_EYES HS Levothyroxine (Levothyroxine) 175 Mcg Tablet 175 MCG PO QAM Loratadine (Claritin) 10 Mg Capsule 10 MG PO QAM Metformin (Glucophage) 1,000 Mg Tablet 1,000 MG PO DAILYWM Methadone (Methadone) 5 Mg Tablet 2.5 MG PO BID Metronidazole (Flagyl) 375 Mg Capsule 1,000 MG TOPICAL BID OPEN CAPSULE AND SPRINKLE ONTO WOUND TWICE DAILY Mirtazapine (Mirtazapine) 15 Mg Tablet 7.5 MG PO HS Nystatin (Nystatin) 15 Gm Powder 1 APPLIC TP BID TO ABDOMINAL FOLDS FOR RASH Omeprazole (Omeprazole) 20 Mg Capsule.dr 20 MG PO QAM Pramipexole Dihydrochloride (Mirapex) 1 Mg Tablet 1 MG PO BID Quetiapine Fumarate (Quetiapine Fumarate) 25 Mg Tablet 25 MG PO QAM Trazodone (Trazodone) 50 Mg Tablet 50 MG PO HS Scheduled PRN Acetaminophen (Acetaminophen) 325 Mg Tablet 650 MG PO Q4H PRN PRN For Fever Bisacodyl (Dulcolax Rectal) 10 Mg Supp.rect 10 MG RC 3X/WEEK PRN PRN For Constipation Hydromorphone (Hydromorphone) 1 Mg/1 Ml Liquid 1-4 MG PO Q1H PRN PRN For Pain Hyoscyamine (Hyoscyamine) 0.125 Mg Tablet 0.25 MG PO Q4H PRN PRN Secretion Control Lorazepam (Lorazepam) 0.5 Mg Tablet 0.5-2 MG PO Q2H PRN PRN For Anxiety Current Treatments BiPAP/CPAP: No Oxygen: No IV Fluids: Yes Antibiotics: Yes Telemetry: Yes Objective Findings Exam Vital Sign - Last Date Time Temp Pulse Resp B/P Pulse Ox O2 Delivery O2 Flow Rate FiO2 10/23/16 11:12 36.5 63 18 151/66 99 Nasal Cannula 2.00 Intake and Output 10/22/16 10/22/16 10/23/16 Cumulative From/Thru 15:00 23:00 07:00 10/22/16 19:50 - 10/23/16 06:45 Intake Total 1000 ml 1324 ml 2324 ml Output Total 560 ml 560 ml Balance 1000 ml 764 ml 1764 ml Intake Oral 150 ml 150 ml IV Total 1000 ml 1174 ml 2174 ml Output Urine Total 560 ml 560 ml # Bowel Movements 2 2 Objective Heavyset elderly woman lying in clinic on bed. Parkinsonian tremor. Vital signs noted. Skin is pale, warm and dry. Head and neck exam without acute focal findings. Lungs clear anterolaterally, heart sounds regular with prominent 3/6 systolic murmur heard across the precordium. Abdomen is obese, soft, nontender. I did not roll her over to examine her sacral wound. Lower extremities remarkable for outlined erythema on the left leg, particularly posteriorly, down to the ankle. Is able to wiggle her toes to command. Lab/Diagnostics Lab and Imaging results reviewed in detail in EMR. Time spent Total time 95 minutes; >50% face to face with patient and family, providing counselling regarding plans and recommendations, and in care coordination with her medical teams. Of the above total time, 35 minutes counseling for advanced care planning with the patient and her family. copies to: Neto Horton MD, David F MD Oct 23, 2016 11:30
--- NOTE | 2016-10-23 11:38 | NUR ---
NUTRITION ASSESSMENT: ASSESS: Pt is a 75yo F admitted for cellulitis and sacral decubitus ulcer. Wound care is following for large sacral PU on sacrum. ST was unable to evaluate pt due to pt being in too much pain and unable to sit up for safe ST evaluation. Palliative care is involved for goals of care. Pt was not weighed at admit and nursing is unable to get a wt now that pt is on a clinitron bed. Per [facility], pts most recent wt on 10/18/16 was 82kg. PMHX: Dementia, T2DM, Parkinson's, HLD LABS: Reviewed. K 2.9, Bun 32, Product Technician 136, Ca 8.3, Alk phos 190, Alb 2.8 MEDS: Reviewed. GI: BMx2 10/23 SKIN: Dinesh 11, Large PU on sacrum. Wound care is following CURRENT WTS: 82kg, BMI 29.2kg, (per [facility]) IBW 59.1kg, Adj bw64.8kg DIET: Dysphagia Mechanical. EST. NEEDS: wound healing Kcals: 2460-2870kcal/day (30-35kcal/kg) Pro: 100-130g/day (1.5-2.0g/kg adj bw) NUTRITION DIAGNOSIS: 1.) Increased nutrient needs related to increased demand for healing as evidence by pt with large PU on sacrum 2.) Inadequate oral intake related to mentation and pain as evidence by pt unable to sit up for safe PO intake NUTRITION INTERVENTION: 1.) Will monitor for goals of care, nutrition status and ability for pt to tolerate PO intake 2.) If family decides they want to pursue nutrition support, pt would need to be able to sit up enough that her HOB is elevated to 30-45 degrees MONITOR / EVAL: POC, wounds, wt?, labs, PO?, nutrition status, Will continue to monitor per high nutrition risk guidelines
--- NOTE | 2016-10-23 11:39 | NUR ---
Palliative Care Palliative Care received verbal order from Dr Valentina Redmond 10/23/16 to assist with goals of care. Patient is a 75 year old woman with Parkinson's, dementia and longstanding sacral decubitus ulcer. She has rapidly deteriorated over the last several weeks and was admitted 10/22/16 with evidence of cellulitis and sepsis. Patient resides at [facility] and was on hospice 06/2016 - 08/2016, however, she graduated from hospice and is no longer receiving their services. Palliative Care to follow. Salome Mcwilliams
--- NOTE | 2016-10-23 11:51 | PCM.PNMED ---
Subjective Date of Service Oct 23, 2016 Subjective patient has some insight, conversive, talks slowly, explained her condition and we aim for pain control, patient seemed to agree. denied fever, chills. c/o mild pain on her back. wound culture done by Wound care Palliative care consulted given her prognosis, Exam Vital Signs Vital Sign - Last Date Time Temp Pulse Resp B/P Pulse Ox O2 Delivery O2 Flow Rate FiO2 10/23/16 11:12 36.5 63 18 151/66 99 Nasal Cannula 2.00 Intake and Output 10/22/16 10/22/16 10/23/16 Cumulative From/Thru 15:00 23:00 07:00 10/22/16 19:50 - 10/23/16 06:45 Intake Total 1000 ml 1324 ml 2324 ml Output Total 560 ml 560 ml Balance 1000 ml 764 ml 1764 ml Intake Oral 150 ml 150 ml IV Total 1000 ml 1174 ml 2174 ml Output Urine Total 560 ml 560 ml # Bowel Movements 2 2 Exam elderly lady NAD, comfortably laying down on the bed no JVD, MMM, no LAD RRR, nl s1, s2 no mrg CTAB, no w,c S,ND,NT,normoactive BS+ warm, no edema, pulses 2/2 IVs and Medications Medications Reviewed: Medications were reviewed in detail Lab and Diagnostics Result Diagram: 10/23/1645410/23/16454 X-Rays, CTs and MRIs Date of Service: 10/22/161901 PROCEDURE: CT LOWER EXTREMITY LEFT WITH CONTRAST INDICATIONS: sacral decub extending down whole leg TECHNIQUE: After the administration of intravenous contrast, 3 mm axial sections acquired of the left lower extremity, with coronal and sagittal reformats. For radiation dose reduction, the following was used: automated exposure control, adjustment of mA and/or kV according to patient size. COMPARISON: [facility], MR, PELVIS W&WO CONTRAST, 08/15/2015, 11:29. FINDINGS: Image quality: History artifact associated with patient's left knee prosthesis. Bones: There are bony erosive changes at the sacrococcygeal junction consistent with osteomyelitis as demonstrated on the prior MRI. No definite new areas of osteomyelitis demonstrated elsewhere. No definite acute fractures or dislocation. There is a left total knee prosthesis with associated streak artifact. No hip or knee joint effusions. Soft tissues: There is a midline decubitus ulcer along the inferior aspect of the sacrum and coccyx measuring up to approximately 5.8 cm in transverse dimension by approximately 6.7 cm in craniocaudal dimension and approximately 1.9 cm in depth. The ulcer extends to the sacrum and coccyx. No discrete fluid collections to suggest abscess. There is subcutaneous edema along the posterior aspect of the calcaneus without a discrete decubitus ulcer. There is fatty atrophy of the visualized musculature. The visualized pelvis demonstrates a Mclain catheter within a nondistended urinary bladder. There is marked stool distention of the rectum again noted. IMPRESSION: 1. Sacral decubitus ulcer redemonstrated extending to the inferior aspect of the sacrum and coccyx with associated osteomyelitis centered at the sacrococcygeal junction. No discrete abscess collection identified. 2. No definite ulcer demonstrated elsewhere in the left lower extremity. Subcutaneous edema demonstrated distally posterior to the calcaneus without a definite discrete ulcer. 3. Marked stool distention of the rectum suggestive of fecal impaction. Dictated by: Geovanni Lynne M.D. on 10/22/2016 at 20:02 Approved by: Geovanni Lynne M.D. on 10/22/2016 at 20:10 Assessment & Plan This is a pleasant although demented 68-year-old female with past medical history of type II diabetes and two-year history of decubitus ulcer who presented to the ED with 2 days of left lower cellulitis secondary to decubitus ulcer. Patient was found to have osteomyelitis on CT and was admitted to the hospital for care. Of note patient just was taken off of hospice. Palliative care was consulted for possible hospice, comfort path, appreciate input. in the meantime, will continue current tx for cellulitis/OM with broad- spectrum antibiotics, awaits wound culture result and wound not pursue surgical consult given that pt has poor nutritional status, poor candidate for surgery. # Cellulitis of left lower extremity secondary to a chronic sacral decubitus ulcer, present on admission, active - Patient was started on vancomycin 1500 mg once in the ED. we will continue - Patient was started on Zosyn 3.375 g once in the ED. we will continue - IV maintenance fluids normal saline at 100 mL an hour # Chronic sacral decubitus ulcer, present on admission, active - Patient failed honey packing secondary to #1 cellulitis - Two-year history of decubitus ulcer, status post failed wound VAC therapy over past 3 weeks. - Patient is seen once a week in the wound clinic - Temporary wound care instructions given for overnight - Wound care evaluation in the morning # Osteomyelitis, present remission, active - As seen on CT - Antibiotics as above - Consider infectious disease consult # Leukocytosis, present remission, active - Vital signs ED: Temperature 36.6, pulse 72, respiratory rate 20, blood pressure 139/60, 96, pulse ox 95% on 2 L nasal cannula. - White blood cell count > 15.2 percent neutrophils 87.8 - lactic acid 0.7, - Procalcitonin 4.72 - Antibiotics as stated above - Blood cultures 2 ordered and pending # Elevated troponin, present remission, active - Likely secondary to demand - troponin 0.057 - We will trend troponin # Dehydration, present on admission, active - Patient is at risk for aspiration - Patient received 1 L normal saline bolus in the ED. - Continue IV maintenance normal saline as above - Speech therapy, occupational therapy, physical therapy ordered pending for today - Nursing to do swallow evaluation - Current diet is liquid thick # Hypoalbuminemia, present on admission, - Secondary to poor nutrition, by mouth intake of protein and secondary to #1 decubitus ulcer # Hypokalemia, recent on admission, active - potassium 3.2, will replete potassium #Hyperglycemia present in a known type II diabetic, present on admission, active - glucose 163, - Low-dose correctional scale insulin - We will continue to monitor. # Hypochromic microcytic anemia, chronicity unknown, present on admission, active - H/H8.7, 27.5, platelets 178, differential, MCV 79.5, MCH 25.1, MCH C 31.6, RDW 15.8. - We will obtain iron studies - Ferritin # Sacral decubitus ulcer with associated osteomyelitis of the sacrococcyx, present on admission, active - As seen on CT left lower extremity: 1. Sacral decubitus ulcer redemonstrated extending to the inferior aspect of the sacrum and coccyx with associated osteomyelitis centered at the sacrococcygeal junction. No abscess. # Fecal impaction, present on admission, active As seen on CT left lower extremity: Marked stool distention of the rectum suggestive of fecal impaction. Chronic problems Parkinson's Disease - Continue outpatient medication carbidopa levodopa Reports: Diabetes mellitus (type 2) - Patient was on metformin 1000 mg daily however med rec is incomplete and needs to be reconciled. Hyperlipidemia prior history of hypertension - med rec is incomplete and needs to be reconciled. Patient/anxiety - med rec is incomplete and needs to be reconciled. Dementia - Possibly secondary to sinus disease Worsening delirium over the past year - I could secondary to bedridden, multiple comorbid medical conditions, polypharmacy Disposition: pending CODE STATUS: DNR/DNI PCP: DVT PE prophylaxis: Enoxaparin Contact: Maxine Loomis [phone] Maxine Nuñez [phone] VTE Prophylaxis: Sub-Q Enoxaparin Resuscitation Status: DNR/DNI:Do Not Resuscitate/Intubate Time spent 35min Osmin Redmond MD Oct 23, 2016 11:51
[2016-10-23] MEDS: Piperacillin-Tazo 3.375 Gm Inj 3.375 GM in Dextrose 5% Minibag Plus 50 ML IV SCH ×2 (11:54→18:44)
--- NOTE | 2016-10-23 12:40 | NUR ---
Palliative Family at bed side and called Dr Darby per orders to notify when family arrives.
--- NOTE | 2016-10-23 12:48 | NUR ---
Implementation Advisor: Initial Assessment Data & Assessment: See Initial Assessment. EMR reviewed. patient is a 75 y/o female that admitted on 10/22/16 with cellulitis and sacral decubitus per H&P. Implementation Advisor attempted to complete initial assessment with patient, but patient was unable to answer the questions. SW called patient's daughter/NI Garduno [phone] to complete initial assessment, SW role reviewed and discharge planning discussed. Patient has Medicare and [facility] insurance. Patient's daughter stated that she was not sure who patient PCP was, but Dr. Neto Horton is listed. patient has no VA or LTC benefits. Patient does not have a re-admit score. Patient is a resident at [facility] and is total assist at baseline. Patient has a WC. Patient has had HH in the past, but her daughter is unable to recall the name. Patient will likely discharge back to [facility]. SW provided patient's daughter with contact information and wrote SW number on the white board in patient's room. SW will continue to follow. Plan: Patient will likely discharge back to [facility]. SW will continue to follow and assist patient throughout stay. Ashia Stewart LMSW, DON Addendum: 10/23/16 at 1259 by ASHIA STEWART Amended: Links added.
--- NOTE | 2016-10-23 13:15 | NUR ---
Pt. screened. She transfers with total/martinez lift at baseline and receives assist for ADLs from SNF staff. No skilled OT warranted. DC order. Leroy Peña, OTR/L
[2016-10-23] MEDS: Insulin LISPRO 300 Unit/3 mL Inj SUBQ SCH ×3 (13:31→22:00)
[2016-10-23] MEDS: HYDROmorphone 1 mg/mL 2 mL Solution PO PRN ×3 (17:04→23:29)
[2016-10-23 17:26] LABS: Magnesium 1.8 mg/dL (1.6-2.6)
--- NOTE | 2016-10-23 18:19 | NUR ---
Pain C/o pain to ulcer site and back pain 01/25. PRN Dilaudid given as ordered for pain relief. wound care nurse at bed side this morning to do wound care. Nasal swab done this shift per Dr Darby orders to rule out MRSA. Current diet General and tolerating general diet. Mclain patent and draining clear urine.
--- NOTE | 2016-10-23 18:36 | NUR ---
Labs Normal potassium and magnesium levels.
[2016-10-23] MEDS: Vancomycin Dose per Pharmacist XX SCH (20:01)
[2016-10-24 00:20] VITALS: BP 137/68; PULSE 60; RESP 20; O2SAT 100
[2016-10-24] MEDS: Piperacillin-Tazo 3.375 Gm Inj 3.375 GM in Dextrose 5% Minibag Plus 50 ML IV SCH ×3 (02:18→17:56)
[2016-10-24] MEDS: HYDROmorphone 1 mg/mL 2 mL Solution PO PRN ×2 (04:04→13:03)
--- NOTE | 2016-10-24 05:26 | NUR ---
Pain Pain continues to be managed with tylenol and prn oral Dilaudid. Without medication pain is very bad, with adequate pain medication pt is more confused. Able to assist with turns for skin and emanuel care. Multiple BMs, edge of ulcer dressing soiled but stool has not penetrated to open area. Sand bed continues to be in use for optimal skin care. Hourly rounding ongoing.
[2016-10-24] MEDS: 0.9% NaCl + KCl 20 mEq/L 1,000 ML IV SCH ×3 (06:44→16:42)
[2016-10-24 07:00] VITALS: BP 151/67; PULSE 60; RESP 20; O2SAT 94
[2016-10-24] MEDS: Insulin LISPRO 300 Unit/3 mL Inj SUBQ SCH ×4 (07:54→22:00)
[2016-10-24] MEDS ORDERED: Vancomycin Serum Trough XX ONE (08:00)
[2016-10-24 08:46] LABS: BASOPHILS % (AUTO) 0.2 % (0-3); EOSINOPHILS % (AUTO) 1.7 % (0-5); MONOCYTES % (AUTO) 7.6 % (4-12); Mean Corpuscular Hemoglobin 24.7 pg (27.0-35.0); Mean Corpuscular Volume 80.3 fL (81-100); NEUTROPHILS % (AUTO) 83.9 % (40-74); Platelet Count 176 bil/L (150-400)
[2016-10-24] MEDS: Vancomycin Dose per Pharmacist XX SCH (09:42)
[2016-10-24 09:47] LABS: BASOPHILS % (AUTO) 0.1 % (0-3); EOSINOPHILS % (AUTO) 1.1 % (0-5); MONOCYTES % (AUTO) 6.3 % (4-12); Mean Corpuscular Hemoglobin 24.6 pg (27.0-35.0); Mean Corpuscular Volume 81.5 fL (81-100); NEUTROPHILS % (AUTO) 88.1 % (40-74); Platelet Count 175 bil/L (150-400)
[2016-10-24 10:29] LABS: Magnesium 1.8 mg/dL (1.6-2.6)
[2016-10-24] MEDS: Vancomycin Inj 1,000 MG in IV Premix 1 EACH IV SCH ×2 (11:13→21:02)
--- NOTE | 2016-10-24 11:32 | PCM.PNMED ---
Subjective Date of Service Oct 24, 2016 Subjective patient remained afebrile, wbc trended down, HD stable MS similar, family decided hospice route, unclear about comfort care. Procal also trended down. Exam Vital Signs Vital Sign - Last Date Time Temp Pulse Resp B/P Pulse Ox O2 Delivery O2 Flow Rate FiO2 10/24/16 07:15 Supplement Oxygen 10/24/16 07:00 36.1 60 20 151/67 94 2.00 Intake and Output 10/23/16 10/23/16 10/24/16 Cumulative From/Thru 15:00 23:00 07:00 10/22/16 19:50 - 10/24/16 06:10 Intake Total 1975 ml 1527 ml 5826 ml Output Total 400 ml 960 ml Balance 1575 ml 1527 ml 4866 ml Intake Oral 496 ml 646 ml IV Total 1479 ml 1527 ml 5180 ml Output Urine Total 400 ml 960 ml # Bowel Movements 2 4 Exam Elderly lady NAD, comfortably laying down on the bed AAOx1, followed simple commands no JVD, MMM, no LAD RRR, nl s1, s2 no mrg CTAB, no w,c S,ND,NT,normoactive BS+ flaccid BLE, IVs and Medications Medications Reviewed: Medications were reviewed in detail Lab and Diagnostics Result Diagram: 10/24/1693710/24/16937 X-Rays, CTs and MRIs Date of Service: 10/22/161901 PROCEDURE: CT LOWER EXTREMITY LEFT WITH CONTRAST INDICATIONS: sacral decub extending down whole leg TECHNIQUE: After the administration of intravenous contrast, 3 mm axial sections acquired of the left lower extremity, with coronal and sagittal reformats. For radiation dose reduction, the following was used: automated exposure control, adjustment of mA and/or kV according to patient size. COMPARISON: [facility], MR, PELVIS W&WO CONTRAST, 08/15/2015, 11:29. FINDINGS: Image quality: History artifact associated with patient's left knee prosthesis. Bones: There are bony erosive changes at the sacrococcygeal junction consistent with osteomyelitis as demonstrated on the prior MRI. No definite new areas of osteomyelitis demonstrated elsewhere. No definite acute fractures or dislocation. There is a left total knee prosthesis with associated streak artifact. No hip or knee joint effusions. Soft tissues: There is a midline decubitus ulcer along the inferior aspect of the sacrum and coccyx measuring up to approximately 5.8 cm in transverse dimension by approximately 6.7 cm in craniocaudal dimension and approximately 1.9 cm in depth. The ulcer extends to the sacrum and coccyx. No discrete fluid collections to suggest abscess. There is subcutaneous edema along the posterior aspect of the calcaneus without a discrete decubitus ulcer. There is fatty atrophy of the visualized musculature. The visualized pelvis demonstrates a Mclain catheter within a nondistended urinary bladder. There is marked stool distention of the rectum again noted. IMPRESSION: 1. Sacral decubitus ulcer redemonstrated extending to the inferior aspect of the sacrum and coccyx with associated osteomyelitis centered at the sacrococcygeal junction. No discrete abscess collection identified. 2. No definite ulcer demonstrated elsewhere in the left lower extremity. Subcutaneous edema demonstrated distally posterior to the calcaneus without a definite discrete ulcer. 3. Marked stool distention of the rectum suggestive of fecal impaction. Dictated by: Geovanni Lynne M.D. on 10/22/2016 at 20:02 Approved by: Geovanni Lynne M.D. on 10/22/2016 at 20:10 Assessment & Plan This is a pleasant although demented 68-year-old female with past medical history of type II diabetes and two-year history of decubitus ulcer who presented to the ED with 2 days of left lower cellulitis secondary to decubitus ulcer. Patient was found to have osteomyelitis on CT and was admitted to the hospital for care. Of note patient just was taken off of hospice. Palliative care was consulted for possible hospice, comfort path, Family(per note, Son at the bed side)agreed on hospice, will determine comfort route: abx vs no abx. liberal food intake allowed. continue current tx for cellulitis/OM with broad-spectrum antibiotics, awaits wound culture result and wound not pursue surgical consult given that pt has poor nutritional status, poor candidate for surgery. # Cellulitis of left lower extremity secondary to a chronic sacral decubitus ulcer, present on admission, active - Patient was started on vancomycin 1500 mg once in the ED. we will continue - Patient was started on Zosyn 3.375 g once in the ED. we will continue - IV maintenance fluids normal saline at 100 mL an hour # Chronic sacral decubitus ulcer, present on admission, active - Patient failed honey packing secondary to #1 cellulitis - Two-year history of decubitus ulcer, status post failed wound VAC therapy over past 3 weeks. - Patient is seen once a week in the wound clinic - Temporary wound care instructions given for overnight - Wound care evaluation in the morning # Osteomyelitis, present remission, active - As seen on CT - Antibiotics as above - Consider infectious disease consult # Leukocytosis, present remission, active - Vital signs ED: Temperature 36.6, pulse 72, respiratory rate 20, blood pressure 139/60, 96, pulse ox 95% on 2 L nasal cannula. - White blood cell count > 15.2 percent neutrophils 87.8 - lactic acid 0.7, - Procalcitonin 4.72 - Antibiotics as stated above - Blood cultures 2 ordered and pending # Elevated troponin, present remission, active - Likely secondary to demand - troponin 0.057 - We will trend troponin # Dehydration, present on admission, active - Patient is at risk for aspiration - Patient received 1 L normal saline bolus in the ED. - Continue IV maintenance normal saline as above - Speech therapy, occupational therapy, physical therapy ordered pending for today - Nursing to do swallow evaluation - Current diet is liquid thick # Hypoalbuminemia, present on admission, - Secondary to poor nutrition, by mouth intake of protein and secondary to #1 decubitus ulcer # Hypokalemia, recent on admission, active - potassium 3.2, will replete potassium #Hyperglycemia present in a known type II diabetic, present on admission, active - glucose 163, - Low-dose correctional scale insulin - We will continue to monitor. # Hypochromic microcytic anemia, chronicity unknown, present on admission, active - H/H8.7, 27.5, platelets 178, differential, MCV 79.5, MCH 25.1, MCH C 31.6, RDW 15.8. - We will obtain iron studies - Ferritin # Sacral decubitus ulcer with associated osteomyelitis of the sacrococcyx, present on admission, active - As seen on CT left lower extremity: 1. Sacral decubitus ulcer redemonstrated extending to the inferior aspect of the sacrum and coccyx with associated osteomyelitis centered at the sacrococcygeal junction. No abscess. # Fecal impaction, present on admission, active As seen on CT left lower extremity: Marked stool distention of the rectum suggestive of fecal impaction. Chronic problems Parkinson's Disease - Continue outpatient medication carbidopa levodopa Reports: Diabetes mellitus (type 2) - Patient was on metformin 1000 mg daily however med rec is incomplete and needs to be reconciled. Hyperlipidemia prior history of hypertension - med rec is incomplete and needs to be reconciled. Patient/anxiety - med rec is incomplete and needs to be reconciled. Dementia - Possibly secondary to sinus disease Worsening delirium over the past year - I could secondary to bedridden, multiple comorbid medical conditions, polypharmacy Disposition: pending CODE STATUS: DNR/DNI PCP: DVT PE prophylaxis: Enoxaparin Contact: Maxine Loomis [phone] Maxine Nuñez [phone] VTE Prophylaxis: Sub-Q Enoxaparin Resuscitation Status: DNR/DNI:Do Not Resuscitate/Intubate Time spent 35min Osmin Redmond MD Oct 24, 2016 11:32
--- NOTE | 2016-10-24 12:02 | PCM.PHAPRO ---
Progress decubitus ulcer with cellulitis, confusion, prior hospice Vancomycin trough within target range at 18. Next trough to be drawn on 10/26 at 0730 Cj Marrero Pharm.D Oct 24, 2016 12:01
[2016-10-24 12:28] VITALS: BP 178/85; PULSE 66; RESP 20; O2SAT 96
--- NOTE | 2016-10-24 12:30 | NUR ---
Urine output Low overnight. IVF infusing as ordered. MD informed. No new orders. Will continue to monitor.
--- NOTE | 2016-10-24 13:43 | NUR ---
Pain Pt is unable to rate pain on verbal scale. FELDT scores 0-3 so far this shift. When FELDT is 0, she states she feels "fine" or "fair to middling" and clearly responds "no" when asked directly if anything hurts. When pain was 3 on FELDT scale, she was not able to directly answer questions about pain and stated "help me, I'm so uncomfortable." Scheduled Methadone and Tylenol given as ordered. Family did request additional pain meds from drier unloader, who admin 2mg oral dilaudid. Pt resting comfortable with family at this time.
--- NOTE | 2016-10-24 14:45 | NUR ---
NUTRITION FOLLOW-UP: ASSESS: Pt is a 75 YO female admitted with 2 days of left lower cellulitis secondary to decubitus ulcer. Patient was found to have osteomyelitis on CT. Palliative care team consulted; family has decided on hospice path. Diet liberalized per palliative care. PO intake bites only. PMHX: Dementia, T2DM, Parkinson's, HLD LABS: Glu 135, A1c 6.4, Ca 8.3l Alb 2.7. MEDS: Remeron, ativan, insulin. GI: BM x 2 today. SKIN: Dinesh 10. Baton Teacher is following. WT: 82.1 kg, BMI 29.2 kg, (per [facility]) IBW 59.1kg, Adj bw64.8kg DIET: General. PO intake bites only. EST. NEEDS: wound healing Kcals: 2460-2870kcal/day (30-35kcal/kg) Pro: 100-130g/day (1.5-2.0g/kg adj bw) NUTRITION DIAGNOSIS: 1) Increased nutrient needs related to increased demand for healing as evidence by pt with large PU on sacrum - PERSISTS. 2) Inadequate oral intake related to mentation and pain as evidence by pt unable to sit up for safe PO intake - PERSISTS. NUTRITION INTERVENTION: 1) Will continue to stand by for nutrition concerns, as patient not on comfort path at this time. MONITOR / EVAL: POC, wounds, wt, labs, PO, nutrition status, Will continue to monitor per high nutrition risk guidelines.
--- NOTE | 2016-10-24 14:46 | NUR ---
Wound care Pt is incontinent of feces with frequent small movements. Fecal matter appears too thick to consider rectal tube at this time. Mclain draining cloudy urine. Sacral ulcer outer dressing changed with each linen/brief change. Full dressing change performed twice so far this shift r/t soiling and packing falling out, despite tape and outer dressings. Dressing change is very difficult r/t size of wound and patient's inability to assist with positioning and holding position. There is additional skin breakdown to the left of sacral ulcer. Pt is on [place] bed.
--- NOTE | 2016-10-24 15:41 | NUR ---
Clearing Distribution Clerk: Continued D/C Planning Data & Assessment: EMR reviewed. Pt is on day 2 of hospitalization for cellulitis per H&P. Pt's daughters Savannah and Ebonie approached SW regarding pt transitioning to hospice after hospitalization. Pt comes from [facility]. Pt's daughters do not want pt to return to [facility]. Daughter Ebonie to assist pt at her home after discharge from the hospital. TMO spoke with Jami at [facility] who is reviewing pt's clinicals for hospice eligibility, states that equipment could be in the home on Wednesday if pt is discharged from hospital. Daughters Savannah and Ebonie requested SW fax Expedited [facility] referral for pt to be reassessed for [facility] caregiving. SW faxed this. SW provided Senior Resource Guide for any supplemental caregiving pt's daughters may need in the interim. spoke with SW inquiring about IV abx for pt after discharge. TOM spoke with Jami who will need to know the dose, course length, and type of IV abx prior to confirming Hospice's ability to manage IV abx at discharge. SW to follow pt's clinical course for IV abx information, update Hospice as information becomes available. Pt's family updated and agreeable to plan. SW will continue to follow. Assessment: Pt who may discharge on hospice. Plan: [facility] reviewing pt for eligibility, ability to manage IV abx at discharge is pending. [facility] Expedited Referral has been faxed. Senior Resource Guide Provided. Pt's family updated and agreeable to plan. SW will continue to follow. USMAN Hernandez
[2016-10-24 16:55] VITALS: BP_SYST 185; BP_DIAS 79; BP_DIAS 83; PULSE 78
[2016-10-24] MEDS: LORazepam 0.5 mg Tablet PO PRN (17:56)
--- NOTE | 2016-10-24 18:45 | NUR ---
HTN See VS record for blood pressures. paged, aware. IVF discontinued. Also, prn Ativan given for generalized restlessness.
[2016-10-24 21:00] VITALS: BP 179/84; PULSE 73; RESP 24; O2SAT 93
[2016-10-25] MEDS: HYDROmorphone 1 mg/mL 2 mL Solution PO PRN (01:54)
[2016-10-25] MEDS: Piperacillin-Tazo 3.375 Gm Inj 3.375 GM in Dextrose 5% Minibag Plus 50 ML IV SCH ×3 (02:39→17:13)
--- NOTE | 2016-10-25 04:49 | NUR ---
Activity Patient exhibits increased discomfort with changing and repositioning. Dressing change required 3 person assist, as patient is fully dependent with bed mobility. Refusal of routine PO Tylenol, but cooperative with oral solutions. Family states patient prefers pudding over applesauce.
[2016-10-25 06:15] VITALS: BP 162/83; PULSE 77
[2016-10-25 06:15] LABS: BASOPHILS % (AUTO) 0.1 % (0-3); EOSINOPHILS % (AUTO) 0.3 % (0-5); MONOCYTES % (AUTO) 6.3 % (4-12); Mean Corpuscular Hemoglobin 24.1 pg (27.0-35.0); Platelet Count 228 bil/L (150-400)
[2016-10-25 06:16] LABS: Magnesium 1.7 mg/dL (1.6-2.6); Phosphorus 2.6 mg/dL (2.5-4.9)
[2016-10-25] MEDS: Insulin LISPRO 300 Unit/3 mL Inj SUBQ SCH ×4 (07:14→23:43)
[2016-10-25] MEDS: Vancomycin Dose per Pharmacist XX SCH (08:16)
[2016-10-25] MEDS: Vancomycin Inj 1,000 MG in IV Premix 1 EACH IV SCH ×2 (08:48→23:43)
--- NOTE | 2016-10-25 10:10 | PCM.PNMED ---
Subjective Date of Service Oct 25, 2016 Subjective no overnight event, HD stable, afebrile, Exam Vital Signs Vital Sign - Last Date Time Temp Pulse Resp B/P Pulse Ox O2 Delivery O2 Flow Rate FiO2 10/25/16 06:15 36.1 77 162/83 10/25/16 04:15 Supplement Oxygen 10/24/16 21:00 24 93 2.50 Intake and Output 10/24/16 10/24/16 10/25/16 Cumulative From/Thru 15:00 23:00 07:00 10/22/16 19:50 - 10/25/16 06:25 Intake Total 236 ml 1670 ml 453 ml 8185 ml Output Total 300 ml 600 ml 1860 ml Balance -64 ml 1070 ml 453 ml 6325 ml Intake Oral 236 ml 400 ml 1282 ml IV Total 1270 ml 453 ml 6903 ml Output Urine Total 300 ml 600 ml 1860 ml # Bowel Movements 2 1 7 Exam Elderly lady NAD, comfortably laying down on the bed AAOx1, followed simple commands no JVD, MMM, no LAD RRR, nl s1, s2 no mrg CTAB, no w,c S,ND,NT,normoactive BS+ flaccid BLE, IVs and Medications Medications Reviewed: Medications were reviewed in detail Lab and Diagnostics Result Diagram: 10/25/1638 10/25/1638 X-Rays, CTs and MRIs Date of Service: 10/22/161901 PROCEDURE: CT LOWER EXTREMITY LEFT WITH CONTRAST INDICATIONS: sacral decub extending down whole leg TECHNIQUE: After the administration of intravenous contrast, 3 mm axial sections acquired of the left lower extremity, with coronal and sagittal reformats. For radiation dose reduction, the following was used: automated exposure control, adjustment of mA and/or kV according to patient size. COMPARISON: [facility], MR, PELVIS W&WO CONTRAST, 08/15/2015, 11:29. FINDINGS: Image quality: History artifact associated with patient's left knee prosthesis. Bones: There are bony erosive changes at the sacrococcygeal junction consistent with osteomyelitis as demonstrated on the prior MRI. No definite new areas of osteomyelitis demonstrated elsewhere. No definite acute fractures or dislocation. There is a left total knee prosthesis with associated streak artifact. No hip or knee joint effusions. Soft tissues: There is a midline decubitus ulcer along the inferior aspect of the sacrum and coccyx measuring up to approximately 5.8 cm in transverse dimension by approximately 6.7 cm in craniocaudal dimension and approximately 1.9 cm in depth. The ulcer extends to the sacrum and coccyx. No discrete fluid collections to suggest abscess. There is subcutaneous edema along the posterior aspect of the calcaneus without a discrete decubitus ulcer. There is fatty atrophy of the visualized musculature. The visualized pelvis demonstrates a Mclain catheter within a nondistended urinary bladder. There is marked stool distention of the rectum again noted. IMPRESSION: 1. Sacral decubitus ulcer redemonstrated extending to the inferior aspect of the sacrum and coccyx with associated osteomyelitis centered at the sacrococcygeal junction. No discrete abscess collection identified. 2. No definite ulcer demonstrated elsewhere in the left lower extremity. Subcutaneous edema demonstrated distally posterior to the calcaneus without a definite discrete ulcer. 3. Marked stool distention of the rectum suggestive of fecal impaction. Dictated by: Geovanni Lynne M.D. on 10/22/2016 at 20:02 Approved by: Geovanni Lynne M.D. on 10/22/2016 at 20:10 Assessment & Plan This is a pleasant although demented 68-year-old female with past medical history of type II diabetes and two-year history of decubitus ulcer who presented to the ED with 2 days of left lower cellulitis secondary to decubitus ulcer. Patient was found to have osteomyelitis on CT and was admitted to the hospital for care. Of note patient just was taken off of hospice. Patient is clinically remained stable on abx, plan is to continue current level of tx. Plan to d/c home with hospice, needs to determine use of abx, appreciate further discussion with Palliative care tomorrow. # Cellulitis of left lower extremity secondary to a chronic sacral decubitus ulcer, present on admission, active - Patient was started on vancomycin 1500 mg once in the ED. we will continue - Patient was started on Zosyn 3.375 g once in the ED. we will continue - IV maintenance fluids normal saline at 100 mL an hour # Chronic sacral decubitus ulcer, present on admission, active - Patient failed honey packing secondary to #1 cellulitis - Two-year history of decubitus ulcer, status post failed wound VAC therapy over past 3 weeks. - Patient is seen once a week in the wound clinic - Temporary wound care instructions given for overnight - Wound care evaluation in the morning # Osteomyelitis, present remission, active - As seen on CT - Antibiotics as above - Consider infectious disease consult # Leukocytosis, present remission, active - Vital signs ED: Temperature 36.6, pulse 72, respiratory rate 20, blood pressure 139/60, 96, pulse ox 95% on 2 L nasal cannula. - White blood cell count > 15.2 percent neutrophils 87.8 - lactic acid 0.7, - Procalcitonin 4.72 - Antibiotics as stated above - Blood cultures 2 ordered and pending # Elevated troponin, present remission, active - Likely secondary to demand - troponin 0.057 - We will trend troponin # Dehydration, present on admission, active - Patient is at risk for aspiration - Patient received 1 L normal saline bolus in the ED. - Continue IV maintenance normal saline as above - Speech therapy, occupational therapy, physical therapy ordered pending for today - Nursing to do swallow evaluation - Current diet is liquid thick # Hypoalbuminemia, present on admission, - Secondary to poor nutrition, by mouth intake of protein and secondary to #1 decubitus ulcer # Hypokalemia, recent on admission, active - potassium 3.2, will replete potassium #Hyperglycemia present in a known type II diabetic, present on admission, active - glucose 163, - Low-dose correctional scale insulin - We will continue to monitor. # Hypochromic microcytic anemia, chronicity unknown, present on admission, active - H/H8.7, 27.5, platelets 178, differential, MCV 79.5, MCH 25.1, MCH C 31.6, RDW 15.8. - We will obtain iron studies - Ferritin # Sacral decubitus ulcer with associated osteomyelitis of the sacrococcyx, present on admission, active - As seen on CT left lower extremity: 1. Sacral decubitus ulcer redemonstrated extending to the inferior aspect of the sacrum and coccyx with associated osteomyelitis centered at the sacrococcygeal junction. No abscess. # Fecal impaction, present on admission, active As seen on CT left lower extremity: Marked stool distention of the rectum suggestive of fecal impaction. Chronic problems Parkinson's Disease - Continue outpatient medication carbidopa levodopa Reports: Diabetes mellitus (type 2) - Patient was on metformin 1000 mg daily however med rec is incomplete and needs to be reconciled. Hyperlipidemia prior history of hypertension - med rec is incomplete and needs to be reconciled. Patient/anxiety - med rec is incomplete and needs to be reconciled. Dementia - Possibly secondary to sinus disease Worsening delirium over the past year - I could secondary to bedridden, multiple comorbid medical conditions, polypharmacy Disposition: pending CODE STATUS: DNR/DNI PCP: DVT PE prophylaxis: Enoxaparin Contact: Maxine Loomis [phone] Maxine Nuñez [phone] VTE Prophylaxis: Sub-Q Enoxaparin Resuscitation Status: DNR/DNI:Do Not Resuscitate/Intubate Time spent 35min Osmin Redmond MD Oct 25, 2016 10:10
[2016-10-25] MEDS: LORazepam 0.5 mg Tablet PO PRN ×2 (11:34→18:19)
[2016-10-25 11:50] VITALS: PULSE 78; O2SAT 93
[2016-10-25 12:33] VITALS: BP 179/76; PULSE 73; RESP 20; O2SAT 96
--- NOTE | 2016-10-25 12:42 | NUR ---
Pain/SOB Pt consistently verbally denies pain; rates 0-3 on FELDT scale. Methadone and Tylenol given as ordered. Ativan also given for general restlessness. Increasing SOB. Oxygen increased to 3L nc to keep sats in low to mid 90s. aware, no new orders at this time. Will continue to monitor.
--- NOTE | 2016-10-25 14:50 | NUR ---
Increasing dyspnea Oxygen increased to 5l nc to keep sats >90%. RR 24. Accessory muscle use to breathe. decreased LOC, difficult to wake pt. MD assessed at bedside and spoke with family about goals of care. Chest xray ordered, pending. Family declined labs and ABGs at this time.
[2016-10-25] MEDS ORDERED: Furosemide 10 mg/mL 2 mL Inj IVPUSH ONE (19:00)
[2016-10-25 20:53] VITALS: BP 183/73; PULSE 66; RESP 16; O2SAT 92
[2016-10-26] MEDS: Piperacillin-Tazo 3.375 Gm Inj 3.375 GM in Dextrose 5% Minibag Plus 50 ML IV SCH ×3 (04:30→18:25)
--- NOTE | 2016-10-26 06:00 | DRSVH ---
PROCEDURE: X-RAY CHEST ONE VIEW, PORTABLE ([id number]) INDICATIONS: SOB TECHNIQUE: One view of the chest was acquired. COMPARISON: [facility], , CHEST 1 VIEW, 09/20/2015, 4:31. FINDINGS: Surgical changes and devices: None. Lungs and pleura: No pleural effusions or pneumothorax. Increased bilateral perihilar patchy opaciti es. Mediastinum: Mediastinal contours appear normal. Heart size is normal. Bones and chest wall: No suspicious bony lesions. Overlying soft tissues appear unremarkable. IMPRESSION: Bilateral perihilar patchy opacities possibly aspiration atelectasis versus pneumonia (at ypical/viral. Dictated by: Jesús Albright M.D. on 10/25/2016 at 16:03 Approved by: Jesús Albright M.D. on 10/25/2016 at 16:04
--- NOTE | 2016-10-26 06:01 | NUR ---
Activity Patient slept majority of shift, c/o discomfort with dressing changes, LOC fluctuated. Denies any pain or discomfort however shows signs of it. Tylenol given crushed in pudding when patient was awake enough to swallow.
[2016-10-26 06:49] VITALS: BP 181/72; PULSE 68; RESP 18; O2SAT 93
[2016-10-26] MEDS ORDERED: Vancomycin Serum Trough XX ONE (07:30)
[2016-10-26] MEDS: Insulin LISPRO 300 Unit/3 mL Inj SUBQ SCH ×4 (08:00→22:00)
[2016-10-26] MEDS: Vancomycin Dose per Pharmacist XX SCH (08:30)
--- NOTE | 2016-10-26 09:04 | NUR ---
ROXANA: Patient's son at bedside and he received message, patient's POA is Savannah and he would like her called and she will be the one to sign for patient. Updated SALES PROJECT MANAGER
--- NOTE | 2016-10-26 10:14 | NUR ---
ROXANA signed with NI Nuñez. USMAN Fischer
--- NOTE | 2016-10-26 10:19 | NUR ---
Social Work-continued d/c planning: Data:EMR Reviewed. Pt is on day 4 of hospitalization for cellulitis per h&P. Pt's family is interested in Hospice services. SW called Hospice and spoke with Jami, Jami states that they are still reviewing chart for eligibility for pt. SW updated pt's daughters Savannah [phone] and Julia [phone] and informed them when more information is known then SW will provide update. SW will continue to follow. Assessment:Pt who would benefit from Hospice. Plan:Hospice reviewing pt to determine if she is Hospice eligible. SW will plan to updated daughters once this information is obtained. Daughter Julia prepared to take pt home with Hospice services. SW will continue to follow. USMAN Fischer
[2016-10-26] MEDS: HYDROmorphone 1 mg/mL 2 mL Solution PO PRN ×2 (11:20→14:44)
[2016-10-26 11:22] VITALS: BP 187/85; PULSE 67; RESP 15; O2SAT 96
--- NOTE | 2016-10-26 11:55 | NUR ---
Blood Sugar Checks Patient's daughter requested that blood sugar checks be discontinued. Notifying
[2016-10-26] MEDS: LORazepam 0.5 mg Tablet PO PRN (12:32)
--- NOTE | 2016-10-26 12:35 | NUR ---
Anxiety Patient reported feeling anxious. 0.5 mg lorazepam given. Patient reported no pain at this time. Denies nausea. Family at bedside. Call light and tray table within reach. Will continue to monitor patient hourly.
--- NOTE | 2016-10-26 12:56 | PCM.PALLBR ---
Palliative Care Recommendation 75-year-old female with history of Parkinson's disease, dementia, long-standing sacral decubitus ulcer, now with fairly rapid deterioration of the state of the ulcer over the last several weeks, admitted with evidence of cellulitis and sepsis. Palliative medicine consulted to assist patient and family in determination of goals of care. Note that the patient had been under hospice care from 07/03 through 09/04, but graduated from hospice at that point due to improvement. Lengthy conversations today with the patient and multiple family members- the family has a realistic understanding of her status and prognosis, but want to have some time to think before proceeding to purely comfort/end-of-life care. Summary of palliative recommendations: -Symptom management (Pain/other)- restart her usual methadone, 2.5 mg BID. Restart her usual hydromorphone liquid, with backup IV hydromorphone for breakthrough pain, as well as lorazepam for anxiety. Adjust medications as needed in the coming days. Family would like her to be awake and interactive if possible, but note that her comfort is the primary goal. --schedule routine BID dosing of lorazepam. --PREMEDICATE for discharge/transport home with: 1 mg lorazepam plus 2 mg hydromorphone. Family also wants her to have unrestricted oral intake with no food/liquid limitations on the basis of swallow. Diet therefore liberalized. Family understands and accepts the risk of aspiration. She is NOT a candidate for CCU care if she aspirates, and if that occurred would transition to more of a purely comfort care status. -DPOA/Advanced Directives/POLST- she remains DO NOT RESUSCITATE/DO NOT INTUBATE/ limited interventions including current IV fluids, antibiotics, etc. for now. The family has considered their options over the weekend and now are in agreement to take her home on hospice. The patient's POA daughter will be in the hospital in the morning to complete a new POLST before discharge. Hospice of the is aware and arranging for DME with admission on day of hospital discharge tomorrow. Additional Medical Diagnoses with primary management by Hospitalist team include : # Cellulitis of left lower extremity secondary to a chronic sacral decubitus ulcer, present on admission, active # Chronic sacral decubitus ulcer, present on admission, active # Osteomyelitis, present remission, active # Leukocytosis, present remission, active # Elevated troponin, present remission, active # Dehydration, present on admission, active # Hypoalbuminemia, present on admission, # Hypokalemia, recent on admission, active #Hyperglycemia present in a known type II diabetic, present on admission, active # Hypochromic microcytic anemia, chronicity unknown, present on admission, active # Sacral decubitus ulcer with associated osteomyelitis of the sacrococcyx, present on admission, active # Fecal impaction, present on admission, active Chronic problems: Parkinson's Disease Reports: Diabetes mellitus (type 2) Hyperlipidemia Hypertension Patient/anxiety Dementia Worsening delirium over the past year Problems: End of Life Preferences DO NOT RESUSCITATE/DO NOT INTUBATE/limited interventions Goals of Care Comfort his primary goal, but family wants to continue antibiotics, etc. for now in hopes of stabilization Disposition To be determined The family expressed some concerns/reservations about her SNF care, but understand that options may be limited Resuscitation Status Resuscitation Status: DNR/DNI:Do Not Resuscitate/Intubate POLST Updates/Changes Previous POLST?: Yes Antibiotics: Determine Use or Limitations Artificially Admin Nutrition: No Artifical Nutrition by Tube POLST Discussed with: Health Care Agent ([facility]) POLST Review Outcome: New Form Completed (will be completed before DC) . Advanced Care Planning Address: Comfort care Pain: Mild Symptom management: Delirium Total time 25 minutes; >50% face to face with patient and/or family, providing counselling regarding plans and recommendations, and in care coordination with his/her medical teams. I also spent an additional 20 minutes counseling for advanced care planning with the patient/the patients family/the surrogate decision maker. copies to: Neto Horton MD Palliative Brief Note Date of Service Oct 26, 2016 . Pt is awake with multiple family members at bedside. They are all agreeable to the plan for hospice at home, forgoing antibiotics if she qualifies for hospice- -we are still awaiting this decision. Pain is addressed, patient had pain 8/10 this morning, decreased to 4-5 /10 after methadone dose this morning, but patient still reports pain at "a quarter " and states she would like to be more comfortable. RN will medicate now with po hydromorphone 1 mg. Second visit to confirm hospice plan for home care to start tomorrow. Plan DC for noon tomorrow. Advise premedication--see plan ( 1 mg ativan plus 2 mg hydromorphone po). Sam Joyner. [facility] Oct 26, 2016 12:56
[2016-10-26] MEDS: LORazepam 0.5 mg Tablet PO SCH ×2 (14:24→20:00)
--- NOTE | 2016-10-26 14:50 | NUR ---
Social Work-readiness for discharge: Data:EMR reviewed. Pt is on day 4 of hospitalization for cellulitis per H&P. Pt is not medically stable at time. TOM spoke with Jami at Hospice who confirms that pt is Hospice eligible and they can deliver DME tomorrow and start services at 2pm tomorrow. SW updated pt's daughter Julia regarding discharge plan. SW explained that Hospice will deliver DME tomorrow and discharge will be around 1200 tomorrow and Hospice will be out around 1400. Daughter agreeable and confirms her address is [address] [place] [address] [place]. SW and UR specialist reviewed chart and feel like pt would need BLS transport. SW updated daughter that SW cannot guarantee that insurance will cover the cost of BLS, daughter agreeable to proceed. SW also updated [facility] has been updated. SW will continue to follow. Assessment:Pt who would benefit from Hospice. Plan:Pt to discharge home with daughter tomorrow via BLS at 1200. Hospice to deliver DME in the morning and open services tomorrow afternoon at 1400. TOM will continue to follow. USMAN Fischer
--- NOTE | 2016-10-26 15:18 | PCM.PNMED ---
Subjective Date of Service Oct 26, 2016 Subjective Patient was seen and examined at bedside today. Patient denies any chest pain, shortness of breath, nausea, vomiting, diarrhea. Patient does complain of lower extremity weakness. Exam Vital Signs Vital Sign - Last Date Time Temp Pulse Resp B/P Pulse Ox O2 Delivery O2 Flow Rate FiO2 10/26/16 11:22 36.7 67 15 187/85 96 Room Air 10/25/16 12:33 3.00 Intake and Output 10/25/16 10/25/16 10/26/16 Cumulative From/Thru 15:00 23:00 07:00 10/22/16 19:50 - 10/26/16 06:48 Intake Total 260 ml 828 ml 236 ml 9509 ml Output Total 575 ml 600 ml 1350 ml 4385 ml Balance -315 ml 228 ml -1114 ml 5124 ml Intake Oral 260 ml 592 ml 236 ml 2370 ml IV Total 236 ml 7139 ml Output Urine Total 575 ml 600 ml 1350 ml 4385 ml # Bowel Movements 3 2 1 13 Exam Physical Exam: GEN: Patient was awake, alert, responding appropriately to questions HEENT: PERRLA, EOMI, Neck soft supple, trachea midline, nomocephalic/atraumatic CV: +S1/S2, RRR, systolic murmur auscultated Respiratory: CTAB, no wheezes, rales, rhonchi GI: +bowel sounds x4, soft, compressible, non TTP EXT: no c/c/e Musculoskeletal : Lower extremity tenderness to palpation, 2/5 strength in the lower extremities Neuro: CN II-XII grossly intact Psych: mood and affect were appropriate IVs and Medications Medications Reviewed: Medications were reviewed in detail Lab and Diagnostics Result Diagram: 10/25/16 0538 10/25/16 0538 X-Rays, CTs and MRIs Date of Service: 10/22/16 190 PROCEDURE: CT LOWER EXTREMITY LEFT WITH CONTRAST INDICATIONS: sacral decub extending down whole leg TECHNIQUE: After the administration of intravenous contrast, 3 mm axial sections acquired of the left lower extremity, with coronal and sagittal reformats. For radiation dose reduction, the following was used: automated exposure control, adjustment of mA and/or kV according to patient size. COMPARISON: [facility], MR, PELVIS W&WO CONTRAST, 08/15/2015, 11:29. FINDINGS: Image quality: History artifact associated with patient's left knee prosthesis. Bones: There are bony erosive changes at the sacrococcygeal junction consistent with osteomyelitis as demonstrated on the prior MRI. No definite new areas of osteomyelitis demonstrated elsewhere. No definite acute fractures or dislocation. There is a left total knee prosthesis with associated streak artifact. No hip or knee joint effusions. Soft tissues: There is a midline decubitus ulcer along the inferior aspect of the sacrum and coccyx measuring up to approximately 5.8 cm in transverse dimension by approximately 6.7 cm in craniocaudal dimension and approximately 1.9 cm in depth. The ulcer extends to the sacrum and coccyx. No discrete fluid collections to suggest abscess. There is subcutaneous edema along the posterior aspect of the calcaneus without a discrete decubitus ulcer. There is fatty atrophy of the visualized musculature. The visualized pelvis demonstrates a Mclain catheter within a nondistended urinary bladder. There is marked stool distention of the rectum again noted. IMPRESSION: 1. Sacral decubitus ulcer redemonstrated extending to the inferior aspect of the sacrum and coccyx with associated osteomyelitis centered at the sacrococcygeal junction. No discrete abscess collection identified. 2. No definite ulcer demonstrated elsewhere in the left lower extremity. Subcutaneous edema demonstrated distally posterior to the calcaneus without a definite discrete ulcer. 3. Marked stool distention of the rectum suggestive of fecal impaction. Dictated by: Geovanni Lynne M.D. on 10/22/2016 at 20:02 Approved by: Geovanni Lynne M.D. on 10/22/2016 at 20:10 Assessment & Plan This is a pleasant although demented 68-year-old female with past medical history of type II diabetes and two-year history of decubitus ulcer who presented to the ED with 2 days of left lower cellulitis secondary to decubitus ulcer. Patient was found to have osteomyelitis on CT and was admitted to the hospital for care. Of note patient just was taken off of hospice. The patient was admitted to the hospital for cellulitis of the lower extremities and chronic sacral decubitus ulcers. Please see below for current treatment to date. At this time the patient family would like to transition the patient over to hospice. The patient has had multiple failed attempts to heal her multiple ulcers. Vancomycin has been stopped as the patient has been negative for MRSA in her blood cultures have also been negative. Patient will finish out her course of Zosyn for palliative reasons today. The patient is currently clinically stable and will most likely be discharged home on hospice tomorrow. Cellulitis of left lower extremity secondary to a chronic sacral decubitus ulcer , present on admission, active - We will stop vancomycin 1500 mg patient is currently negative for MRSA -Continue Zosyn 3.375 g - IV maintenance fluids normal saline at 100 mL an hour Chronic sacral decubitus ulcer, present on admission, active - Two-year history of decubitus ulcer, status post failed wound VAC therapy over past 3 weeks. - Patient is seen once a week in the wound clinic - Temporary wound care instructions given for overnight - Wound care consulted Osteomyelitis, present remission, active - As seen on CT - Antibiotics as above Leukocytosis, present remission, active - Vital signs ED: Temperature 36.6, pulse 72, respiratory rate 20, blood pressure 139/60, 96, pulse ox 95% on 2 L nasal cannula. - White blood cell count > 15.2 percent neutrophils 87.8 - lactic acid 0.7, - Procalcitonin 4.72 - Antibiotics as stated above - Blood cultures 2 ordered and pending Elevated troponin, present remission, active - Likely secondary to demand - troponin 0.057 - We will trend troponin Dehydration, present on admission, active - Patient is at risk for aspiration - Patient received 1 L normal saline bolus in the ED. - Continue IV maintenance normal saline as above - Speech therapy, occupational therapy, physical therapy ordered pending for today - Nursing to do swallow evaluation - Current diet is liquid thick Hypoalbuminemia, present on admission, - Secondary to poor nutrition, by mouth intake of protein and secondary to #1 decubitus ulcer Hypokalemia, recent on admission, active - potassium 3.2, will replete potassium Hyperglycemia present in a known type II diabetic, present on admission, active - glucose 163, - Low-dose correctional scale insulin - We will continue to monitor. Hypochromic microcytic anemia, chronicity unknown, present on admission, active - H/H8.7, 27.5, platelets 178, differential, MCV 79.5, MCH 25.1, MCH C 31.6, RDW 15.8. - We will obtain iron studies - Ferritin Sacral decubitus ulcer with associated osteomyelitis of the sacrococcyx, present on admission, active - As seen on CT left lower extremity: 1. Sacral decubitus ulcer redemonstrated extending to the inferior aspect of the sacrum and coccyx with associated osteomyelitis centered at the sacrococcygeal junction. No abscess. Fecal impaction, present on admission, active As seen on CT left lower extremity: Marked stool distention of the rectum suggestive of fecal impaction. Chronic problems Parkinson's Disease - Continue outpatient medication carbidopa levodopa Reports: Diabetes mellitus (type 2) - Patient was on metformin 1000 mg daily however med rec is incomplete and needs to be reconciled. Hyperlipidemia prior history of hypertension - med rec is incomplete and needs to be reconciled. Patient/anxiety - med rec is incomplete and needs to be reconciled. Dementia - Possibly secondary to sinus disease Worsening delirium over the past year - I could secondary to bedridden, multiple comorbid medical conditions, polypharmacy Disposition: pending CODE STATUS: DNR/DNI PCP: DVT PE prophylaxis: Enoxaparin Contact: Maxine Loomis [phone] Maxine Nuñez [phone] VTE Prophylaxis: Sub-Q Enoxaparin Resuscitation Status: DNR/DNI:Do Not Resuscitate/Intubate Time spent Greater than 35 minutes Laura Allan DO Oct 26, 2016 12:03
[2016-10-26] MEDS: Vancomycin Inj 1,000 MG in IV Premix 1 EACH IV SCH (15:42)
[2016-10-26 15:57] VITALS: BP 185/77; PULSE 69; RESP 15; O2SAT 91
--- NOTE | 2016-10-26 16:00 | NUR ---
Wound Care [facility] Patient seen for dressing change to Stage IV pressure ulcer to sacrum. Wound with no significant change in size to wound bed or non-viable tissue to left of open area. Wound continues 6 cm L x 9 cm W x 2 cm D with undermining of 3.5 cms from 9:00 to 3:00 superiorly.Wound cleaned with NS. Packed with moistened aquacel AG, filled with 2 4x4s, covered with 4x4s and ABD x 2. Secured with Hypafix tape. Patient continues on [place] bed. Unable to assist with turning. Wound care to follow up at needed.
[2016-10-26 19:49] VITALS: BP 182/72; PULSE 68; RESP 18; O2SAT 100
[2016-10-26 19:51] VITALS: BP 167/75
[2016-10-27] MEDS: Piperacillin-Tazo 3.375 Gm Inj 3.375 GM in Dextrose 5% Minibag Plus 50 ML IV SCH ×2 (01:19→10:00)
[2016-10-27 03:03] VITALS: BP 184/99; PULSE 56; RESP 16; O2SAT 97
[2016-10-27] MEDS: HYDROmorphone 0.5 mg/0.5 mL iSecure Syringe IVPUSH PRN (03:13)
[2016-10-27] MEDS ORDERED: Vancomycin Inj 1,000 MG in IV Premix 1 EACH IV SCH (04:00)
--- NOTE | 2016-10-27 06:44 | NUR ---
NOC PT has slept well all night. Pain well managed. Dilaudid given once for BTP. Unfortunately IV has infiltrated twice and pt is very hard stick. Family is refusing another IV at this time as pt is getting d/c today. R a/c is swollen, pink and painful to touch. Arm is elevated on pillow. Pt had episode of soft stool. Mclain draining adequate UO. B/P hypertensive, but the same range that it has been. Planning for d/c today with hospice.
--- NOTE | 2016-10-27 06:55 | NUR ---
Spoke with DR Barfield who is ok with pt not having IV.
[2016-10-27] MEDS: Insulin LISPRO 300 Unit/3 mL Inj SUBQ SCH (07:32)
[2016-10-27] MEDS: LORazepam 0.5 mg Tablet PO SCH (07:57)
[2016-10-27] MEDS ORDERED: HYDR1LIQ4 PO (10:54)
--- NOTE | 2016-10-27 10:57 | PCM.DIMED ---
Discharge Instructions Date of Service Oct 27, 2016 Dates of Hospitalization Oct 22, 2016 at 21:08 Discharge Diagnosis Discharge Diagnosis Cellulitis of the left lower extremity Chronic sacral decubitus ulcers Osteomyelitis Elevated troponins secondary to demand ischemia Hypoalbuminemia Hypokalemia Hypochromic microcytic anemia End-of-life care Diet No restrictions Activity Other (as tolerated) Patient Instructions Please follow up with hospice for any further needs Laura Allan DO Oct 27, 2016 10:57
[2016-10-27] MEDS: LORazepam 0.5 mg Tablet PO PRN (11:18)
--- NOTE | 2016-10-27 11:21 | NUR ---
Social Work-discharge: Data:EMR reviewed. Pt is on day 5 of hospitalization for cellulitis per H&P. Pt is medically stable for discharge. SW confirmed with Hospice that DME is being delivered this morning and that Hospice can open at 1300 today. BLS has been arranged via [facility] at 1200. SW updated pt and family of discharge time. Pt's daughter is aware of transport and aware that cost of BLS may not be covered by insurance, family agreeable to proceed. RN,UC,pt/family, and Hospice all updated and agreeable to plan. Assessment:Pt who would benefit from Hospice. plan:Pt to discharge to daughter's home today via BLS at 1200. Hospice has delivered all DME and and Hospice to be out around 1300 to see pt. RN,UC,pt/family, and Hospice all updated and agreeable to plan. USMAN Fischer
[2016-10-27] MEDS ORDERED: LORA-302 PO (12:29)
--- NOTE | 2016-10-27 12:56 | NUR ---
discharged home with family, transport per stretcher with BLS. Sacral dressing changed prior to transfer. New Rx for PO Dilaudid and Lorazepam sent with daughter and discharge instructions. Pt looking forward to being home
--- NOTE | 2016-10-28 09:41 | PCM.PALLBR ---
Palliative Care Recommendation 75-year-old female with history of Parkinson's disease, dementia, long-standing sacral decubitus ulcer, now with fairly rapid deterioration of the state of the ulcer over the last several weeks, admitted with evidence of cellulitis and sepsis. Palliative medicine consulted to assist patient and family in determination of goals of care. Note that the patient had been under hospice care from 07/03 through 09/04, but graduated from hospice at that point due to improvement. Lengthy conversations today with the patient and multiple family members- the family has a realistic understanding of her status and prognosis and are prepared to provide end of life care at home with the support of hospice. Summary of palliative recommendations: -Symptom management (Pain/other)- continue her usual methadone, 2.5 mg BID. continue hydromorphone liquid, with backup IV hydromorphone for breakthrough pain, as well as lorazepam for anxiety. Restart her Mirapex and Remeron. Adjust medications as needed in the coming days. Family would like her to be awake and interactive if possible, but note that her comfort is the primary goal. --PREMEDICATE for discharge/transport home with: 1 mg lorazepam plus 2 mg hydromorphone. Family also wants her to have unrestricted oral intake with no food/liquid limitations on the basis of swallow. Diet therefore liberalized. Family understands and accepts the risk of aspiration. At this time, the family understands that transitioning to hospice will mean no return to the hospital -DPOA/Advanced Directives/POLST- a new POLST form is completed today that states : DO NOT RESUSCITATE/DO NOT INTUBATE/lcomfort measures only, and the name and number for hospice are written on the front. Additional Medical Diagnoses with primary management by Hospitalist team include : # Cellulitis of left lower extremity secondary to a chronic sacral decubitus ulcer, present on admission, active # Chronic sacral decubitus ulcer, present on admission, active # Osteomyelitis, present remission, active # Leukocytosis, present remission, active # Elevated troponin, present remission, active # Dehydration, present on admission, active # Hypoalbuminemia, present on admission, # Hypokalemia, recent on admission, active #Hyperglycemia present in a known type II diabetic, present on admission, active # Hypochromic microcytic anemia, chronicity unknown, present on admission, active # Sacral decubitus ulcer with associated osteomyelitis of the sacrococcyx, present on admission, active # Fecal impaction, present on admission, active Chronic problems: Parkinson's Disease Reports: Diabetes mellitus (type 2) Hyperlipidemia Hypertension Patient/anxiety Dementia Worsening delirium over the past year Problems: End of Life Preferences DO NOT RESUSCITATE/DO NOT INTUBATE/limited interventions Goals of Care Comfort his primary goal, but family wants to continue antibiotics, etc. for now in hopes of stabilization Disposition To be determined The family expressed some concerns/reservations about her SNF care, but understand that options may be limited Resuscitation Status Resuscitation Status: DNR/DNI:Do Not Resuscitate/Intubate (comfort interventions only) POLST Updates/Changes Previous POLST?: Yes Antibiotics: No Antibiotics Artificially Admin Nutrition: No Artifical Nutrition by Tube POLST Discussed with: Health Care Agent ([facility]) POLST Review Outcome: New Form Completed . Advanced Care Planning Address: POLST Pain: Mild Symptom management: Pain Total time 45 minutes; >50% face to face with patient and/or family, providing counselling regarding plans and recommendations, and in care coordination with his/her medical teams. Of this 20 minutes is spent in counseling for advanced care planning including completion of a new POLST form, with the patient/the patients family/the surrogate decision maker. copies to: Neto Horton MD Palliative Brief Note Date of Service Oct 27, 2016 . LATE ENTRY OF VISIT FOR 10/27/16: Visit to patient prior to discharge on the morning of October. Patient is being tended to by her family at bedside; they are preparing for discharge today with one daughter at home awaiting DME being arranged by hospice. NI Nuñez/daughter is here. We discussed her prior POLST form and the daughter agrees that a change in the form to indicate "comfort measures only" is appropriate at this time. She expresses the "mixed emotions" of taking her mom home for comfort, to stop the inevitable prolonged suffering, and yet anxiety and a sense of "are we doing the right thing?", knowing that as antibiotics are stopped, the timeline of her dying will accelerate. She had many questions, e.g.: '"how long will it take?" "how often will there be someone from hospice there?", "who will give her meds/how will we know how much to give?". We took time to answer these questions and offer support for the emotional challenge they are facing. She expressed understanding and was reassured that hospice staff will be able to meet their needs and provide the support they need as well. Sam Joyner. TESSY Oct 28, 2016 09:41
--- NOTE | 2016-10-28 18:10 | PCM.DC.MED ---
Discharge Summary Date of Service Oct 27, 2016 Dates of Hospitalization Date of Hospital Admission Oct 22, 2016 at 21:08 Date of Discharge: Oct 27, 2016 Providers: Admitting Physician: Danis Lynn MD Primary Care Physician: Neto Horton MD Attending Physician: Danis Lynn MD Diagnosis at Time of Discharge Diagnosis at Time of Discharge Cellulitis of the left lower extremity Chronic sacral decubitus ulcers Osteomyelitis Elevated troponins secondary to demand ischemia Hypoalbuminemia Hypokalemia Hypochromic microcytic anemia End-of-life care Procedures XRay, CTs & MRIs Date of Service: 10/22/161901 PROCEDURE: CT LOWER EXTREMITY LEFT WITH CONTRAST INDICATIONS: sacral decub extending down whole leg TECHNIQUE: After the administration of intravenous contrast, 3 mm axial sections acquired of the left lower extremity, with coronal and sagittal reformats. For radiation dose reduction, the following was used: automated exposure control, adjustment of mA and/or kV according to patient size. COMPARISON: [facility], MR, PELVIS W&WO CONTRAST, 08/15/2015, 11:29. FINDINGS: Image quality: History artifact associated with patient's left knee prosthesis. Bones: There are bony erosive changes at the sacrococcygeal junction consistent with osteomyelitis as demonstrated on the prior MRI. No definite new areas of osteomyelitis demonstrated elsewhere. No definite acute fractures or dislocation. There is a left total knee prosthesis with associated streak artifact. No hip or knee joint effusions. Soft tissues: There is a midline decubitus ulcer along the inferior aspect of the sacrum and coccyx measuring up to approximately 5.8 cm in transverse dimension by approximately 6.7 cm in craniocaudal dimension and approximately 1.9 cm in depth. The ulcer extends to the sacrum and coccyx. No discrete fluid collections to suggest abscess. There is subcutaneous edema along the posterior aspect of the calcaneus without a discrete decubitus ulcer. There is fatty atrophy of the visualized musculature. The visualized pelvis demonstrates a Mclain catheter within a nondistended urinary bladder. There is marked stool distention of the rectum again noted. IMPRESSION: 1. Sacral decubitus ulcer redemonstrated extending to the inferior aspect of the sacrum and coccyx with associated osteomyelitis centered at the sacrococcygeal junction. No discrete abscess collection identified. 2. No definite ulcer demonstrated elsewhere in the left lower extremity. Subcutaneous edema demonstrated distally posterior to the calcaneus without a definite discrete ulcer. 3. Marked stool distention of the rectum suggestive of fecal impaction. Dictated by: Geovanni Lynne M.D. on 10/22/2016 at 20:02 Approved by: Geovanni Lynne M.D. on 10/22/2016 at 20:10 Brief History Per admission H&P: 75 y/o bed ridden F with hx of dementia and worsening delirium over the past year, hx of DM2, and 2 year hx sacral decubitus ulcer, who presented to the ED [facility] patient resides due to left lower extremity redness, and swelling over the past 48 hours. Patient describes burning pain on the buttock area rated 8 out of 10. Of note patient had wound VAC therapy for the last 3 weeks. Patient has been followed in wound care clinic once a week, otherwise was having her shoulder ulcer evaluated at [facility]. The wound seemed to be worsening over the past 48 hours and an evolving cellulitis of the left lower extremity prompted patient's visit to the ED. Patient's daughter Ebonie was present in the room at time of interview and reported that the wound had developed a foul smell since being placed on a wound vac. Of note patient was recently taken off of hospice treatment a week ago and showed signs of improvement with honey packing of the wound. This treatment was ceased recently due to development of infection. Prior to transfer to [facility] patient was residing at [facility] for. 3 months for possible surgical flap repair of the deep decubitus ulcer however was liter determined not to be a candidate for surgery given level of debility. Daughter is unable to confirm or deny associated fever. Denies nausea, vomiting, abdominal pain, dysuria, hematuria, cough, shortness of breath. Patient is DNR/DNI. History is limited due to patient's underlying dementia. Comparison of notes regarding the appearance of her sacral decubitus suggests that it has deteriorated markedly over the course of the last several weeks. Patient previously had been followed since 07/03 by hospice at [facility], but hospice signed off at the end of 09/04 as it appeared patient was improving. Palliative medicine was consulted to assist patient and family in determination of goals of care. Prior to visiting patient, I reviewed her records in the EMR in detail. Also spoke with hospice personnel regarding her history there. On my arrival, patient is lying in a [place] bed. Wound care had recently been by to evaluate her. Speech therapy also saw her and does not feel she is safe for oral intake. Patient was awake and alert and complained of significant pain in the region of her tailbone and in her left leg. Requested additional pain medication. She denied any other significant discomfort such as chest or abdominal pain, nausea, dyspnea, etc. She is able to answer very simple focused questions and follow simple commands but has significant short- term memory deficit. I then called and spoke with her daughter Ebonie by phone. Reviewed patient's current status, per her progress over the last several months, and her prognosis. Ebonie noted that she and her sister Savannah as well as the patient's sister would be visiting the hospital shortly and she requested that I join them at that time, to which I agreed. Returned later to meet with multiple family members at bedside. They initially wanted to involve the patient in all decision-making, but after speaking for several minutes and recognizing that she really was unable to process and interact with these complex questions, the family became more willing to speak and make decisions on her behalf. We reviewed her past medical history, particularly the history of the decubitus ulcer and all that she has been through as it has been treated. The family members recognize that there is no cure for this but initially had limited understanding of her overall time course /prognosis. I advised them that my expectation is that even if she stabilizes this time she will experience early and frequent readmissions for recurrent bouts of sepsis, and that there was little if any likelihood that she would significantly improve or have long-term stabilization. We then talked at length about implications of that realization. Reviewed their goals for her care (all family members agreed that her comfort was their primary goal). They recognize the potential need to transition back to hospice care/comfort care but wanted to take some time and think and talk about things over the next several days. Answered multiple questions they had about her status, prognosis, medications, diet aspiration risk, etc. and I stayed and we talked until all questions had been answered to their satisfaction. Hospital Course This is a pleasant although demented 68-year-old female with past medical history of type II diabetes and two-year history of decubitus ulcer who presented to the ED with 2 days of left lower cellulitis secondary to decubitus ulcer. Patient was found to have osteomyelitis on CT and was admitted to the hospital for care. Of note patient just was taken off of hospice. The patient was admitted to the hospital for cellulitis of the lower extremities and chronic sacral decubitus ulcers. Please see below for current treatment to date. At this time the patient family would like to transition the patient over to hospice. The patient has had multiple failed attempts to heal her multiple ulcers. Vancomycin has been stopped as the patient has been negative for MRSA in her blood cultures have also been negative. Patient will finish out her course of Zosyn for palliative reasons today. The patient is currently clinically stable and was discharged home on hospice. Cellulitis of left lower extremity secondary to a chronic sacral decubitus ulcer , present on admission, active - We will stop vancomycin 1500 mg patient is currently negative for MRSA -Continue Zosyn 3.375 g - IV maintenance fluids normal saline at 100 mL an hour Chronic sacral decubitus ulcer, present on admission, active - Two-year history of decubitus ulcer, status post failed wound VAC therapy over past 3 weeks. - Patient is seen once a week in the wound clinic - Temporary wound care instructions given for overnight - Wound care consulted Osteomyelitis, present remission, active - As seen on CT - Antibiotics as above Leukocytosis, present remission, active - Vital signs ED: Temperature 36.6, pulse 72, respiratory rate 20, blood pressure 139/60, 96, pulse ox 95% on 2 L nasal cannula. - White blood cell count > 15.2 percent neutrophils 87.8 - lactic acid 0.7, - Procalcitonin 4.72 - Antibiotics as stated above - Blood cultures 2 ordered and pending Elevated troponin, present remission, active - Likely secondary to demand - troponin 0.057 - We will trend troponin Dehydration, present on admission, active - Patient is at risk for aspiration - Patient received 1 L normal saline bolus in the ED. - Continue IV maintenance normal saline as above - Speech therapy, occupational therapy, physical therapy ordered pending for today - Nursing to do swallow evaluation - Current diet is liquid thick Hypoalbuminemia, present on admission, - Secondary to poor nutrition, by mouth intake of protein and secondary to #1 decubitus ulcer Hypokalemia, recent on admission, active - potassium 3.2, will replete potassium Hyperglycemia present in a known type II diabetic, present on admission, active - glucose 163, - Low-dose correctional scale insulin - We will continue to monitor. Hypochromic microcytic anemia, chronicity unknown, present on admission, active - H/H8.7, 27.5, platelets 178, differential, MCV 79.5, MCH 25.1, MCH C 31.6, RDW 15.8. - We will obtain iron studies - Ferritin Sacral decubitus ulcer with associated osteomyelitis of the sacrococcyx, present on admission, active - As seen on CT left lower extremity: 1. Sacral decubitus ulcer redemonstrated extending to the inferior aspect of the sacrum and coccyx with associated osteomyelitis centered at the sacrococcygeal junction. No abscess. Fecal impaction, present on admission, active As seen on CT left lower extremity: Marked stool distention of the rectum suggestive of fecal impaction. Chronic problems Parkinson's Disease - Continue outpatient medication carbidopa levodopa Reports: Diabetes mellitus (type 2) - Patient was on metformin 1000 mg daily however med rec is incomplete and needs to be reconciled. Hyperlipidemia prior history of hypertension - med rec is incomplete and needs to be reconciled. Patient/anxiety - med rec is incomplete and needs to be reconciled. Dementia - Possibly secondary to sinus disease Worsening delirium over the past year - I could secondary to bedridden, multiple comorbid medical conditions, polypharmacy Disposition: pending CODE STATUS: DNR/DNI PCP: DVT PE prophylaxis: Enoxaparin Contact: Daughter Ebonie [phone] Maxine Nuñez [phone] Exam Vital Signs (Last) Date Time Temp Pulse Resp B/P Pulse Ox O2 Delivery O2 Flow Rate FiO2 10/27/16 03:03 36.5 56 16 184/99 97 Nasal Cannula 2.00 Exam Physical Exam: GEN: Patient was awake, alert, responding appropriately to questions HEENT: PERRLA, EOMI, Neck soft supple, trachea midline, nomocephalic/atraumatic CV: +S1/S2, RRR, systolic murmur auscultated Respiratory: CTAB, no wheezes, rales, rhonchi GI: +bowel sounds x4, soft, compressible, non TTP EXT: no c/c/e Musculoskeletal : Lower extremity tenderness to palpation, 2/5 strength in the lower extremities Neuro: CN II-XII grossly intact Psych: mood and affect were appropriate Test 10/22/16 17:21 10/22/16 17:31 10/22/16 23:45 10/23/16 04:10 Prothrombin Time 12.2sec (8.1-12.5) Prothromb Time International Ratio 1.14ratio Activated Partial Thromboplast Time 30.1sec (22.8-33.0) Lactic Acid Level 0.7mmol/L (0.4-2.0) Hemoglobin A1c 6.4% (4.8-5.6) Troponin T 0.042ug/L (0.0-0.011) Urine Color Yellow (YELLOW) Urine Appearance Slightly cloudy Urine pH >9 (5.0-8.0) Urine Specific [place] 1.005 (1.003-1.035) Urine Protein 30mg/dL (NEG,TRACE) Urine Glucose (UA) Negativemg/dL (NEGATIVE) Urine Ketones Negativemg/dL (NEGATIVE) Urine Occult Blood Small (NEGATIVE) Urine Nitrite Positive (NEGATIVE) Urine Bilirubin Negative (NEGATIVE) Urine Urobilinogen Normalmg/dL (NORMAL) Urine Leukocyte Esterase Moderate (NEGATIVE) Urine RBC 3-10/hpf (0-2) Urine WBC 6-10/hpf (0-5) Urine Epithelial Cells Occasional/hpf (NONE-MOD) Urine Crystals Triple phosphate Urine Bacteria Moderate/hpf (NONE-FEW) Urine Hyaline Casts None/lpf (NONE) Urine Granular Casts None seen (NONE SEEN) Urine Waxy Casts None seen (NONE SEEN) Urine Red Blood Cell Casts None seen (NONE SEEN) Urine White Blood Cell Casts None seen (NONE SEEN) Urine Mucus None seen (None Seen) Urine Trichomonas None seen (NONE SEEN) Urine Yeast None (NONE SEEN) Urinalysis Comment None Urine Culture Reflexed Indicated Test 10/24/16 09:38 10/25/16 05:38 Procalcitonin 1.82ng/mL (0.00-0.08) Hold Fay Top Tube Received (Received) Vancomycin Level Trough 18.0mcg/mL White Blood Count 11.6th/mm3 (3.8-10.1) Red Blood Count 3.73mil/mm3 (3.90-5.20) Hemoglobin 9.0g/dL (12.0-15.6) Hematocrit 30.2% (35.0-46.0) Mean Corpuscular Volume 81.0fL (81-100) Mean Corpuscular Hemoglobin 24.1pg (27.0-35.0) Mean Corpuscular Hemoglobin Concent 29.8% (32.0-37.0) Red Cell Distribution Width 15.7% (12.3-15.4) Platelet Count 228bil/L (150-400) Neutrophils (%) (Auto) 87.0% (40-74) Lymphocytes (%) (Auto) 5.4% (14-46) Monocytes (%) (Auto) 6.3% (4-12) Eosinophils (%) (Auto) 0.3% (0-5) Basophils (%) (Auto) 0.1% (0-3) Sodium Level 138mEq/L (134-144) Potassium Level 3.8mEq/L (3.5-5.2) Chloride Level 103mEq/L (97-108) Carbon Dioxide Level 21mmol/L (18-29) Blood Urea Nitrogen 18mg/dL (8-27) Creatinine 0.60mg/dL (0.57-1.00) Estimat Glomerular Filtration Rate 139mL/min (>59) Glucose Level 135mg/dL (60-99) Calcium Level 8.5mg/dL (8.5-10.1) Phosphorus Level 2.6mg/dL (2.5-4.9) Magnesium Level 1.7mg/dL (1.6-2.6) Total Bilirubin 0.3mg/dL (0.0-1.2) Aspartate Amino Transf (AST/SGOT) 15U/L (0-50) Alanine Aminotransferase (ALT/SGPT) 19U/L (0-32) Alkaline Phosphatase 232U/L (25-165) Total Protein 6.2g/dL (6.4-8.4) Albumin 3.0g/dL (3.4-5.0) Discharge Medications Discharge Medications Carbidopa/Levodopa 25-250 mg (Carbidopa/Levodopa 25-250 mg) 1 Each Tablet 1 TABLET PO QID (Reported) Carbidopa/Levodopa/Enta 50-200-200 mg (Carbidopa/Levodopa/Enta 50-200-200 mg) 1 Each Tablet 1 TABLET PO HS (Reported) Docusate Sodium (Colace) 100 Mg Capsule 200 MG PO QAM (Reported) Latanoprost (Latanoprost) 2.5 Ml Drops 1 GTT BOTH_EYES HS (Reported) Levothyroxine (Levothyroxine) 175 Mcg Tablet 175 MCG PO QAM (Reported) Lorazepam (Ativan) 0.5 Mg Tablet 0.5 MG PO TID Prescribed by: LUANNE MESSINA DO Metformin (Glucophage) 1,000 Mg Tablet 1,000 MG PO DAILYWM (Reported) Methadone (Methadone) 5 Mg Tablet 2.5 MG PO BID (Reported) Metronidazole (Flagyl) 375 Mg Capsule 1,000 MG TOPICAL BID (Reported) OPEN CAPSULE AND SPRINKLE ONTO WOUND TWICE DAILY Mirtazapine (Mirtazapine) 15 Mg Tablet 7.5 MG PO HS (Reported) Nystatin (Nystatin) 15 Gm Powder 1 APPLIC TP BID (Reported) TO ABDOMINAL FOLDS FOR RASH Omeprazole (Omeprazole) 20 Mg Capsule.dr 20 MG PO QAM (Reported) Pramipexole Dihydrochloride (Mirapex) 1 Mg Tablet 1 MG PO BID (Reported) Quetiapine Fumarate (Quetiapine Fumarate) 25 Mg Tablet 25 MG PO QAM (Reported) Trazodone (Trazodone) 50 Mg Tablet 50 MG PO HS (Reported) As needed Acetaminophen (Acetaminophen) 325 Mg Tablet 650 MG PO Q4H PRN PRN For Fever ( Reported) Bisacodyl (Dulcolax Rectal) 10 Mg Supp.rect 10 MG RC 3X/WEEK PRN PRN For Constipation (Reported) Hydromorphone (Hydromorphone) 1 Mg/1 Ml Liquid 1-4 MG PO Q1H PRN PRN For Pain Prescribed by: LUANNE MESSINA DO Hyoscyamine (Hyoscyamine) 0.125 Mg Tablet 0.25 MG PO Q4H PRN PRN Secretion Control (Reported) Followup Plan Discharge Diet: No restrictions Discharge Activity: Other (as tolerated) Patient Instructions Please follow up with hospice for any further needs copies to: Neto Horton MD, Precious L DO Oct 27, 2016 11:22
== END 2016-10-27 12:37 | disposition home or self-care (01) | DRG 602 ==
LOC: EDBD 16:45 → SED 16:50 → OSC 21:08
PROVIDERS: ADMIT Family Medicine; ATTEND Family Medicine
DX: L03.116 Cellulitis of left lower limb (principal); L89.154 Pressure ulcer of sacral region, stage 4; I24.8 Other forms of acute ischemic heart disease; M86.8X8 Other osteomyelitis, other site; Z79.82 Long term (current) use of aspirin; Z79.84 Long term (current) use of oral hypoglycemic drugs; Z85.43 Personal history of malignant neoplasm of ovary; D72.829 Elevated white blood cell count, unspecified; E88.09 Other disorders of plasma-protein metabolism, not elsewhere classified; E11.65 Type 2 diabetes mellitus with hyperglycemia; D50.9 Iron deficiency anemia, unspecified; K56.41 Fecal impaction; G20 Parkinson's disease; F03.90 Unspecified dementia, unspecified severity, without behavioral disturbance, psychotic disturbance, mood disturbance, and anxiety; Z66 Do not resuscitate; Z51.5 Encounter for palliative care; E86.0 Dehydration; E87.6 Hypokalemia